=== PATIENT | female | born 1940 | race Caucasian/White ===

== ENCOUNTER 2019-12-29 10:44 | Emergency (ER) | payer OTHER ==
[2019-12-29] MEDS ORDERED: FENTANYL CITR 100 MCG/2 ML ONE (11:52)
--- NOTE | 2019-12-29 12:57 | RAD REPORT ---
EXAM DESCRIPTION: RAD - Ankle Right 3 View - 12/29/2019 12:31 pm CLINICAL HISTORY: Pain;Deformity COMPARISON: No comparisons FINDINGS: Oblique fracture is present through the distal fibula at the tibiotalar joint line. 1 mill imeter of lateral displacement. No significant angulation deformity. There is transverse fracture of the medial malleolus with 2 mm lateral displacement. Dome of the talus shows 1-2 mm lateral displacem ent relative to the tibial plafond. Moderately large plantar and Achilles spurs project from the calcaneus. No measurable joint effusion. Significant anterior and lateral soft tissue swelling. IMPRESSION: Bimalleolar right ankle fracture as detailed.
--- NOTE | 2019-12-29 12:59 | RAD REPORT ---
EXAM DESCRIPTION: RAD - Tib Fib Right - 12/29/2019 12:31 pm CLINICAL HISTORY: PAIN, slip and fall ankle and leg pain COMPARISON: No comparisons FINDINGS: Distal fibula and medial malleolus fractures are detailed in the ankle report. Remainder t he right tibia and fibula show no fracture for acute finding. Partially imaged knee joint shows no nassar spicious finding. No foreign body. Soft tissue swelling at the ankle. IMPRESSION: Right distal fibula and medial malleolus fractures are present, detailed on the ankle re port. Remainder of the examination is unremarkable.
--- NOTE | 2019-12-29 13:57 | ER ---
Nurse's Notes [facility] Name: Razia Hernandez Age: 79 yrs Sex: Female : 1940 Arrival Date: 12/29/2019 Time: 10:46 Bed 16 Private MD: Ashwin Michele C Diagnosis: Bimalleolar fracture of lower leg Presentation: 12/28 11:10 Chief complaint: Patient states: slipped on some water, fell and rolled her right iw ankle, felt bone move inside ankle when she tried to get up, occurred at 0930 today. Coronavirus screen: Proceed with normal triage. Patient denies a cough. Patient denies shortness of breath or difficulty breathing. Patient denies measured and/or subjective temperature greater than 100.4F prior to today's visit. Patient denies travel on a cruise ship or to a country the [facility] currently lists as an affected area. Patient denies contact with known and/or suspected case of COVID-19. Ebola Screen: Patient negative for fever greater than or equal to 101.5 degrees Fahrenheit, and additional compatible Ebola Virus Disease symptoms Patient denies exposure to infectious person. Patient denies travel to an Ebola-affected area in the 21 days before illness onset. No symptoms or risks identified at this time. Initial Sepsis Screen: Does the patient meet any 2 criteria? No. Patient's initial sepsis screen is negative. Does the patient have a suspected source of infection? No. Patient's initial sepsis screen is negative. Risk Assessment: Do you want to hurt yourself or someone else? Patient reports no desire to harm self or others. Onset of symptoms was December 29, 2019. 11:10 Method Of Arrival: Wheelchair iw 11:10 Acuity: JUSTYNA 4 iw Historical: - Allergies: 11:13 Codeine; iw 11:13 Sulfa (Sulfonamide Antibiotics); iw - Home Meds: 11:13 Metformin Oral [Active]; multivitamin oral oral [Active]; Norvasc 10 mg Oral tab 1 tab iw once daily [Active]; Benicar 40 mg oral tab 1 tab once daily [Active]; potassium chloride 10 mEq Oral TbER 1 tab once daily [Active]; metoprolol tartrate 25 mg Oral tab 1 tab 2 times per day [Active]; fenofibrate oral oral [Active]; Fosamax Oral [Active]; 11:14 aspirin 81 mg Oral TbEC 1 tab once daily [Active]; iw - PMHx: 11:13 Diabetes - NIDDM; Hypertension; Hyperlipidemia; iw - Immunization history:: Adult Immunizations. - Social history:: Smoking status: Patient/guardian denies using tobacco, the patient reports quitting approximately 50 years ago. Screenin:46 Abuse screen: Denies threats or abuse. Nutritional screening: No deficits noted. Tuberculosis screening: No symptoms or risk factors identified. Fall Risk None identified. Assessment: 11:25 General: Appears in no apparent distress. Pain: Complains of pain in right lateral ah malleolus Pain does not radiate. Pain currently is 7 out of 10 on a pain scale. Quality of pain is described as throbbing. Neuro: Level of Consciousness is awake, alert, Oriented to person, place, time, situation. Cardiovascular: Heart tones S1 S2 present. Respiratory: Airway is patent Respiratory effort is even, unlabored, Respiratory pattern is regular, symmetrical. GI: No signs and/or symptoms were reported involving the gastrointestinal system. : No signs and/or symptoms were reported regarding the genitourinary system. EENT: No signs and/or symptoms were reported regarding the EENT system. Derm: No signs and/or symptoms reported regarding the dermatologic system. Musculoskeletal: Circulation, motion, and sensation intact. Capillary refill < 3 seconds, Range of motion: intact in right ankle Swelling present in right ankle Tenderness present in right medial malleolus. 12:50 Reassessment: Assisted Pt to bathroom via WC, she states that her pain is better at this time. Vital Signs: 11:10 BP 140 / 74; Pulse 62; Resp 16; Temp 98.4; Pulse Ox 96% on R/A; Weight 68.04 kg; Height iw 5 ft. 3 in. (160.02 cm); Pain 7/10; 11:10 Body Mass Index 26.57 (68.04 kg, 160.02 cm) ED Course: 10:46 Patient arrived in ED. ag5 10:46 Ashwin Michele MD is Private Physician. ag5 10:53 Urban Wei MD is Attending Physician. kdr 11:11 Triage completed. iw 11:13 Arm band placed on. iw 11:42 Re Taylor, RN is Primary Nurse. 12:31 Ankle Right 3 View XRAY In Process Unspecified. EDMS 12:31 Tib Fib Right XRAY In Process Unspecified. EDMS 12:49 Patient has correct armband on for positive identification. Bed in low position. Call light in reach. Side rails up X 1. 13:37 Orthoglass splint: Posterior long leg splint applied on right leg. stirrup splint dh3 applied on right leg. capillary refill < [address] Wei. 13:53 Ashwin Michele MD is Referral Physician. kdr 13:53 Mitch Gomes MD is Referral Physician. kdr 14:15 No provider procedures requiring assistance completed. Patient did not have IV access during this emergency room visit. Administered Medications: 11:50 Drug: fentaNYL (PF) 50 mcg Route: IM; Site: right ventrogluteal; 12:46 Follow up: Response: No adverse reaction; RASS: Alert and Calm (0) Outcome: 13:57 Discharge ordered by . kdr 14:14 Discharged to home ambulatory. 14:14 Condition: good 14:14 Discharge instructions given to patient, Instructed on discharge instructions, follow up and referral plans. medication usage, Demonstrated understanding of instructions, follow-up care, medications, crutch walking, splint care, Prescriptions given X 1. 14:15 Patient left the ED. Signatures: Dispatcher [employer] Urban Loza MD MD [facility] Sarah Ferrer RN RN Bisi Canales 3 Alley Singer 5 Re Taylor RN RN
--- NOTE | 2019-12-29 13:57 | EDPHYS ---
Physician Documentation [facility] Name: Razia Hernandez Age: 79 yrs Sex: Female : 1940 Arrival Date: 12/29/2019 Time: 10:46 Bed 16 Private MD: Ashwin Michele C ED Physician Urban Wei HPI: 12/28 11:30 This 79 yrs old Female presents to ER via Wheelchair with complaints of Ankle kdr Injury. 11:30 The patient presents with decreased range of motion, a deformity, an injury, pain, that kdr is acute, swelling, tenderness. The complaints affect the right ankle. Onset: The symptoms/episode began/occurred suddenly, just prior to arrival. Context: The problem was sustained at home, resulted from the patient tripping, Slipped on wet floor, The mechanism of injury is unknown. Associated signs and symptoms: The patient has no apparent associated signs or symptoms. Modifying factors: The symptoms are alleviated by nothing, the symptoms are aggravated by weight bearing, movement. Severity of symptoms: At their worst the symptoms were moderate, severe, incapacitating, in the emergency department the symptoms are unchanged. The patient has not experienced similar symptoms in the past. The patient has not recently seen a physician. Historical: - Allergies: 11:13 Codeine; iw 11:13 Sulfa (Sulfonamide Antibiotics); iw - Home Meds: 11:13 Metformin Oral [Active]; multivitamin oral oral [Active]; Norvasc 10 mg Oral tab 1 tab iw once daily [Active]; Benicar 40 mg oral tab 1 tab once daily [Active]; potassium chloride 10 mEq Oral TbER 1 tab once daily [Active]; metoprolol tartrate 25 mg Oral tab 1 tab 2 times per day [Active]; fenofibrate oral oral [Active]; Fosamax Oral [Active]; 11:14 aspirin 81 mg Oral TbEC 1 tab once daily [Active]; iw - PMHx: 11:13 Diabetes - NIDDM; Hypertension; Hyperlipidemia; iw - Immunization history:: Adult Immunizations. - Social history:: Smoking status: Patient/guardian denies using tobacco, the patient reports quitting approximately 50 years ago. ROS: 11:30 Constitutional: Negative for fever, chills, and weight loss, Eyes: Negative for injury, kdr pain, redness, and discharge, ENT: Negative for injury, pain, and discharge, Neck: Negative for injury, pain, and swelling, Cardiovascular: Negative for chest pain, palpitations, and edema, Respiratory: Negative for shortness of breath, cough, wheezing, and pleuritic chest pain, Abdomen/GI: Negative for abdominal pain, nausea, vomiting, diarrhea, and constipation, Back: Negative for injury and pain, : Negative for injury, bleeding, discharge, and swelling, Skin: Negative for injury, rash, and discoloration, Neuro: Negative for headache, weakness, numbness, tingling, and seizure activity. Psych: Negative for depression, anxiety, suicide ideation, homicidal ideation, and hallucinations, Allergy/Immunology: Negative for hives, rash, and allergies, Endocrine: Negative for neck swelling, polydipsia, polyuria, polyphagia, and marked weight changes, Hematologic/Lymphatic: Negative for swollen nodes, abnormal bleeding, and unusual bruising. 11:30 MS/extremity: Positive for injury or acute deformity, decreased range of motion, pain, swelling, tenderness, of the right ankle. Exam: 11:30 Constitutional: This is a well developed, well nourished patient who is awake, alert, kdr and in no acute distress. 11:30 Musculoskeletal/extremity: ROM: limited active range of motion, limited passive range of motion, in the right ankle and lateral aspect of right foot, Circulation is intact in all extremities. Sensation intact. Vital Signs: 11:10 BP 140 / 74; Pulse 62; Resp 16; Temp 98.4; Pulse Ox 96% on R/A; Weight 68.04 kg; Height iw 5 ft. 3 in. (160.02 cm); Pain 7/10; 11:10 Body Mass Index 26.57 (68.04 kg, 160.02 cm) iw MDM: 11:30 Data reviewed: vital signs, nurses notes, radiologic studies. Counseling: I had a kdr detailed discussion with the patient and/or guardian regarding: the historical points, exam findings, and any diagnostic results supporting the discharge/admit diagnosis, the need for outpatient follow up. 13:57 Patient medically screened. kdr 12/28 11:29 Order name: Ankle Right 3 View XRAY kdr 12/28 11:29 Order name: Tib Fib Right XRAY kdr 12/28 11:29 Order name: Splint - Ankle: Posterior: With stirrup to just above knee; Complete Time: kdr 13:39 12/28 11:30 Order name: Crutches; Complete Time: 11:52 kdr Administered Medications: 11:50 Drug: fentaNYL (PF) 50 mcg Route: IM; Site: right ventrogluteal; 12:46 Follow up: Response: No adverse reaction; RASS: Alert and Calm (0) Disposition: 12/29/19 13:57 Discharged to Home. Impression: Bimalleolar fracture of lower leg. - Condition is Stable. - Discharge Instructions: Ankle Fracture, [id number]. - Prescriptions for Tramadol 50 mg Oral Tablet - take 1 tablet by ORAL route every 8 hours as needed; 12 tablet. - Medication Reconciliation Form, Thank You Letter form. - Follow up: Ashwin Michele MD; When: 2 - 3 days; Reason: Further diagnostic work-up, Recheck today's complaints, Continuance of care, Re-evaluation by your physician. Follow up: Mitch Gomes MD; When: 2 - 3 days; Reason: Further diagnostic work-up, Recheck today's complaints, Continuance of care, Re-evaluation by your physician. - Problem is new. - Symptoms have improved. Signatures: Dispatcher [employer] EDMS Urban Wei MD MD kdr Sarah Ferrer, LOVE RN Re Taylor RN RN Corrections: (The following items were deleted from the chart) 14:15 13:57 12/29/2019 13:57 Discharged to Home. Impression: Bimalleolar fracture of lower ah leg. Condition is Stable. Forms are Medication Reconciliation Form, Thank You Letter, Antibiotic Education, Prescription Opioid Use. Follow up: Ashwin Michele; When: 2 - 3 days; Reason: Further diagnostic work-up, Recheck today's complaints, Continuance of care, Re-evaluation by your physician. Follow up: Dr. Mitch Gomes; When: 2 - 3 days; Reason: Further diagnostic work-up, Recheck today's complaints, Continuance of care, Re-evaluation by your physician. Problem is new. Symptoms have improved. kdr
[2019-12-30 02:36] VITALS: BP 140/74; TEMP 98.4; O2SAT 96
== END 2019-12-29 14:15 | disposition home or self-care (01) ==
LOC: ER 10:44
PROC: 2W3QX1Z Immobilization of Right Lower Leg using Splint (ICD-10-PCS; principal; 2019-12-29)
DX: S82.841A Displaced bimalleolar fracture of right lower leg, initial encounter for closed fracture (principal); W01.0XXA Fall on same level from slipping, tripping and stumbling without subsequent striking against object, initial encounter; Y93.9 Activity, unspecified; Y92.009 Unspecified place in unspecified non-institutional (private) residence as the place of occurrence of the external cause; Z79.82 Long term (current) use of aspirin; I10 Essential (primary) hypertension; E11.9 Type 2 diabetes mellitus without complications; E78.5 Hyperlipidemia, unspecified
CPT/HCPCS: 73590; 73610; 96372; 99284; 29515; J3010

== ENCOUNTER 2021-08-03 04:19 | Inpatient (IN) | payer OTHER ==
--- OUTSIDE RECORDS SUMMARY | 2021-08-03 04:22 | XMS REPORT | Continuity of Care Document ---
:1940 Author Organization [facility] t Address [address] [place] [address] Care Team Providers Name Role Phone Tana PONCE Primary Care Physician Unavailable Clemencia WARD Attending Clinician Unavailable Clemencia Bethea Attending Clinician Payers Payer Name Policy Type Policy Number Effective Date Expiration Date Clemencia mora MEDICARE PART A [id number] 2006 \T\ B 00:00:00 Problems This patient has no known problems. Allergies, Adverse Reactions, Alerts Allergy Allergy Status Severity Reaction(s) Onset Inactive Treating Comm ents Source Name Type Date Date Clinician CODEINE DRUG Active N/V 2020-0 Univers INGREDI 5-11 ity of 00:00: [place] 00 [facility] Branch SULFA DRUG Active Swelling 2020-0 Univers DYNE 5-11 ity of 00:00: [place] 00 [facility] TRAMADOL DRUG Active N/V 2020-0 Univers INGREDI 5-11 ity of 00:00: [place] 00 [facility] Codeine Propensi Active Rash 2020-0 Univers ty to 5-11 ity of adverse 00:00: [place] reaction 00 Medical s Branch Sulfa Propensi Active Swelling 2020-0 Univer s Dyne ty to 5-11 ity of adverse 00:00: [place] reaction 00 Medical s Branch Tramadol Propensi Active Nausea 2020-0 Univer s ty to and/or 5-11 ity of adverse Vomiting 00:00: [place] reaction 00 Medical Branch NO KNOWN Drug Active Univers ALLERGIE Class ity of S [facility] Social History Social Habit Start Date Stop Date Quantity Comments Source Sex Assigned At Uni versity of [facility] Exposure to SARS-CoV-2 Not sure Un [facility] [place] (event) Medical [place] Smoking Status Start Date Stop Date Source Former smoker 2020-02-10 00:00:00 2020-02-10 00:00:00 Universi [facility] Medical Branch Medications Ordered Filled Start Stop Current Ordering Indication Dosage Frequency Signature Comments Components Source Medication Medication Date Date Medication? Clinician (SIG) Name Name ondansetron 2020-0 Yes [id number] 8mg Take 1 Univers (ZOFRAN) 8 5-18 tablet by ity of mg tablet 00:00: mouth [place] 00 every 12 Medical (twelve) Branch hours. ondansetron 2020-0 Yes [id number] 8mg Take 1 Univers (ZOFRAN) 8 5-18 tablet by ity of mg tablet 00:00: mouth [place] 00 every 12 Medical (twelve) Branch hours. ondansetron 2020-0 Yes [id number] 8mg Take 1 Univers (ZOFRAN) 8 5-18 tablet by ity of mg tablet 00:00: mouth [place] 00 every 12 Medical (twelve) Branch hours. ondansetron 2020-0 Yes [id number] 8mg Take 1 Univers (ZOFRAN) 8 5-18 tablet by ity of mg tablet 00:00: mouth [place] 00 every 12 Medical (twelve) Branch hours. ondansetron 2020-0 Yes [id number] 8mg Take 1 Univers (ZOFRAN) 8 5-18 tablet by ity of mg tablet 00:00: mouth [place] 00 every 12 Medical (twelve) Branch hours. ondansetron 2020-0 Yes [id number] 8mg Take 1 Univers (ZOFRAN) 8 5-18 tablet by ity of mg tablet 00:00: mouth [place] 00 every 12 Medical (twelve) Branch hours. ASPIRIN LOW 2020-0 Yes Take by Un main DOSE ORAL 5-11 mouth. ity of 19:25: [address] ASPIRIN LOW 2020-0 Yes Take by Un main DOSE ORAL 5-11 mouth. ity of 19:25: [address] ASPIRIN LOW 2020-0 Yes Take by Un main DOSE ORAL 5-11 mouth. ity of 19:25: [address] ASPIRIN LOW 2020-0 Yes Take by Un main DOSE ORAL 5-11 mouth. ity of 19:25: [address] ASPIRIN LOW 2020-0 Yes Take by Un main DOSE ORAL 5-11 mouth. ity of 19:25: [address] ASPIRIN LOW 2020-0 Yes Take by Un main DOSE ORAL 5-11 mouth. ity of 19:25: [place] [id number] Medical Branch ASPIRIN LOW 2020-0 Yes Take by Un main DOSE ORAL 5-11 mouth. ity of 19:25: [place] [id number] Medical Branch ASPIRIN LOW 2020-0 Yes Take by Un main DOSE ORAL 5-11 mouth. ity of 19:25: [place] [id number] Medical Branch metoprolol 2020-0 Yes 25mg Take 25 mg U nivers succinate 5-11 by mouth ity of XL 25 mg 24 19:[place]. [place] 11 [place] [facility] amLODIPine 2020-0 Yes 10mg Take 10 mg U nivers (NORVASC) 5-11 by mouth ity of 10 mg 19:25: daily. [place] tablet 11 Medical Branch olmesartan- 2019-0 Yes 1{tbl} Take 1 Un main hydrochloro 5-11 tablet by ity of thiazide 19:25: mouth [place] (BENICAR 11 daily. Medical HCT) Branch 40-12.5 mg per tablet Potassium 2020-0 Yes Take by [facility] ers Bicarb-Citr 5-11 mouth. ity of ic Acid 10 19:25: [place] mEq TbEF 11 Medical Branch fenofibrate 2020-0 Yes 145mg Take 145 U nivers 145 mg 5-11 mg by ity of tablet 19:25: mouth [place] 11 daily. Medical Branch metoprolol 2020-0 Yes 25mg Take 25 mg U nivers succinate 5-11 by mouth ity of XL 25 mg 24 19:25: [place]. [place] tablet 11 [place] [facility] amLODIPine 2020-0 Yes 10mg Take 10 mg U nivers (NORVASC) 5-11 by mouth ity of 10 mg 19:25: daily. [place] tablet 11 Medical Branch olmesartan- 2020-0 Yes 1{tbl} Take 1 Un main hydrochloro 5-11 tablet by ity of thiazide 19:25: mouth [place] (BENICAR 11 daily. Medical HCT) Branch 40-12.5 mg per tablet Potassium 2020-0 Yes Take by [facility] ers Bicarb-Citr 5-11 mouth. ity of ic Acid 10 19:25: [place] mEq TbEF 11 Medical Branch fenofibrate 2020-0 Yes 145mg Take 145 U nivers 145 mg 5-11 mg by ity of tablet 19:25: mouth [place] 11 daily. Medical Branch metoprolol 2020-0 Yes 25mg Take 25 mg U nivers succinate 5-11 by mouth ity of XL 25 mg 24 19:25: [place]. [place] tablet 11 [facility] amLODIPine 2020-0 Yes 10mg Take 10 mg U nivers (NORVASC) 5-11 by mouth ity of 10 mg 19:25: daily. [place] tablet 11 Medical Branch olmesartan- 2020-0 Yes 1{tbl} Take 1 Un main hydrochloro 5-11 tablet by ity of thiazide 19:25: mouth [place] (BENICAR 11 daily. Medical HCT) Branch 40-12.5 mg per tablet Potassium 2020-0 Yes Take by [facility] ers Bicarb-Citr 5-11 mouth. ity of ic Acid 10 19:25: [place] mEq TbEF 11 Medical Branch olmesartan- 2020-0 Yes 1{tbl} Take 1 Un main hydrochloro 5-11 tablet by ity of thiazide 19:25: mouth [place] (BENICAR 11 daily. Medical HCT) Branch 40-12.5 mg per tablet fenofibrate 2020-0 Yes 145mg Take 145 U nivers 145 mg 5-11 mg by ity of tablet 19:25: mouth [place] 11 daily. Medical Branch metoprolol 2020-0 Yes 25mg Take 25 mg U nivers succinate 5-11 by mouth ity of XL 25 mg 24 19:25: [place]. [place] 11 [place] [facility] amLODIPine 2019-0 Yes 10mg Take 10 mg U nivers (NORVASC) 5-11 by mouth ity of 10 mg 19:25: daily. [place] tablet 11 Medical Branch Potassium 2020-0 Yes Take by [facility] ers Bicarb-Citr 5-11 mouth. ity of ic Acid 10 19:25: [place] mEq TbEF 11 Medical Branch fenofibrate 2020-0 Yes 145mg Take 145 U nivers 145 mg 5-11 mg by ity of tablet 19:25: mouth [place] 11 daily. Medical Branch metoprolol 2020-0 Yes 25mg Take 25 mg U nivers succinate 5-11 by mouth ity of XL 25 mg 24 19:25: [place]. [place] tablet 11 [facility] amLODIPine 2020-0 Yes 10mg Take 10 mg U nivers (NORVASC) 5-11 by mouth ity of 10 mg 19:25: daily. [place] tablet 11 Medical Branch olmesartan- 2020-0 Yes 1{tbl} Take 1 Un main hydrochloro 5-11 tablet by ity of thiazide 19:25: mouth [place] (BENICAR 11 daily. Medical HCT) Branch 40-12.5 mg per tablet Potassium 2020-0 Yes Take by [facility] ers Bicarb-Citr 5-11 mouth. ity of ic Acid 10 19:25: [place] mEq TbEF 11 Medical Branch fenofibrate 2020-0 Yes 145mg Take 145 U nivers 145 mg 5-11 mg by ity of tablet 19:25: mouth [place] 11 daily. Medical Branch metoprolol 2020-0 Yes 25mg Take 25 mg U nivers succinate 5-11 by mouth ity of XL 25 mg 24 19:25: [place]. [place] tablet 11 [facility] amLODIPine 2020-0 Yes 10mg Take 10 mg U nivers (NORVASC) 5-11 by mouth ity of 10 mg 19:25: daily. [place] tablet 11 Medical Branch olmesartan- 2020-0 Yes 1{tbl} Take 1 Un main hydrochloro 5-11 tablet by ity of thiazide 19:25: mouth [place] (BENICAR 11 daily. Medical HCT) Branch 40-12.5 mg per tablet Potassium 2020-0 Yes Take by [facility] ers Bicarb-Citr 5-11 mouth. ity of ic Acid 10 19:25: [place] mEq TbEF 11 Medical Branch fenofibrate 2020-0 Yes 145mg Take 145 U nivers 145 mg 5-11 mg by ity of tablet 19:25: mouth [place] 11 daily. Medical Branch metoprolol 2020-0 Yes 25mg Take 25 mg U nivers succinate 5-11 by mouth ity of XL 25 mg 24 19:25: [place]. [place] tablet 11 [place] [facility] amLODIPine 2020-0 Yes 10mg Take 10 mg U nivers (NORVASC) 5-11 by mouth ity of 10 mg 19:25: daily. [place] tablet 11 Medical Branch olmesartan- 2020-0 Yes 1{tbl} Take 1 Un main hydrochloro 5-11 tablet by ity of thiazide 19:25: mouth [place] (BENICAR 11 daily. Medical HCT) Branch 40-12.5 mg per tablet Potassium 2020-0 Yes Take by [facility] ers Bicarb-Citr 5-11 mouth. ity of ic Acid 10 19:25: [place] mEq TbEF 11 Medical Branch fenofibrate 2020-0 Yes 145mg Take 145 U nivers 145 mg 5-11 mg by ity of tablet 19:25: mouth [place] 11 daily. Medical Branch metoprolol 2019-0 Yes 25mg Take 25 mg U nivers succinate 5-11 by mouth ity of XL 25 mg 24 19:25: [place]. [place] tablet 11 [facility] amLODIPine 2019-0 Yes 10mg Take 10 mg U nivers (NORVASC) 5-11 by mouth ity of 10 mg 19:25: daily. [place] tablet 11 Medical Branch olmesartan- 2019-0 Yes 1{tbl} Take 1 Un main hydrochloro 5-11 tablet by ity of thiazide 19:25: mouth [place] (BENICAR 11 daily. Medical HCT) Branch 40-12.5 mg per tablet Potassium 2019-0 Yes Take by Univ ers Bicarb-Citr 5-11 mouth. ity of ic Acid 10 19:25: [place] mEq TbEF 11 Medical Branch fenofibrate 2019- Yes 145mg Take 145 U nivers 145 mg 5-11 mg by ity of tablet 19:25: mouth [place] 11 daily. Medical Branch Vital Signs Vital Name Observation Time Observation Value Comments Source Systolic blood 2020-02-10 16:05:00 116 mm[Hg[facility] [place] Diastolic blood 2020-02-10 16:05:00 63 mm[Hg] Un[facility] Heart rate 2020-02-10 16:05:00 73 /min [facility] Body height 2020-02-10 16:05:00 161.3 cm [facility] Body weight 2020-02-10 16:05:00 69.854 kg [facility] BMI 2020-02-10 16:05:00 26.85 kg/m2 [facility] Body height 2020-01-09 18:53:00 161.3 cm [facility] Body weight 2020-01-09 18:53:00 68.947 kg [facility] BMI 2020-01-09 18:53:00 26.50 kg/m2 [facility] Systolic blood 2020-01-02 19:21:00 139 mm[Hg] Univer [facility] Branch Diastolic blood 2020-01-02 19:21:00 78 mm[Hg] [facility] Heart rate 2020-01-02 19:21:00 71 /min [facility] Body height 2020-01-02 19:21:00 161.3 cm [facility] Body weight 2020-01-02 19:21:00 68.947 kg [facility] BMI 2020-01-02 19:21:00 26.50 kg/m2 [facility] Procedures Procedure Date / Time Performed Performing Clinician Reza tucker XR ANKLE <3 VW RIGHT 2020-02-10 16:03:58 Chris Ward ity [facility] [place] XR ANKLE <3 VW RIGHT 2020-01-09 18:56:03 Chris Ward [facility] Encounters Start End Encounter Admission Attending Care Care Encounter Source Date/Time Date/Time Type Type Clinicians Facility Department ID 2020-02-10 2020-02-10 Outpatient Tisha WARD [facility] [id number] Univers 11:03:57 23:59:00 CHRIS [facility] 2020-02-10 2020-02-10 [facility] [id number] Univers 11:03:00 23:59:00 Encounter [facility] [id number] ity of Surgical [id number] [place] as Specialti [id number] Sd dical es 809 [facility] 2020-02-10 2020-02-10 Office [facility] [id number] Univers 11:01:13 11:16:13 Visit [facility] [id number] it y of Surgical [id number] Clifford as Specialti [id number] Sd dical es 198 [facility] 2020-02-10 2020-02-10 Outpatient Tisha WARD [facility] [id number] Univers 11:00:00 11:00:00 CHRIS [id number] [facility] 2020-01-09 2020-01-09 [id number] Univers 13:56:03 23:59:00 CHRIS [facility] 2020-01-09 2020-01-09 [facility] [id number] Univers 13:56:00 23:59:00 Encounter Chris [facility] [id number] ity of Surgical [id number] Clifford as Specialti [id number] Sd dical es 809 [facility] 2020-01-09 2020-01-09 Office [facility] [id number] Univers 13:43:34 13:58:34 Visit Chris [facility] [id number] it y of Surgical [id number] Clifford as Specialti [id number] Sd dical es 198 [facility] 2020-01-09 2020-01-09 Outpatient R [facility] [id number] Univers 13:45:00 13:45:00 CHRIS [id number] [facility] 2020-01-02 2020-01-02 Office [facility] [id number] Univers 14:14:23 14:29:23 Visit [facility] [id number] it y of Surgical [id number] Clifford as Specialti [id number] Sd dical es 198 [facility] 2020-01-02 2020-01-02 [facility] [id number] Univers 14:15:00 14:15:00 [facility] Results Test Description Test Time Test Comments Results Result Sour e Comments XR ANKLE <3 VW 2020-02-10 She has a University of RIGHT 16:21:19 fracture of the [place] Med ical medial and Branch lateral malleolus that show callus formation now her ankle mortise is balanced XR ANKLE <3 VW 2020-01-09 On the oblique Univer sity of RIGHT 19:06:42 view she has [place] Medica l normal alignment Branch there is a bimalleolar fracture of her right ankle. ?
[2021-08-03] MEDS ORDERED: NA CHLORIDE 0.9% 1,000 ML ONE (04:55)
[2021-08-03 05:01] LABS: Absolute Lymphocytes (CBC) 1.4 K/uL (0.7-4.9); Basophils % 0.7 % (0-1.3); Hematocrit 39.1 % (36.0-45.0); Lymphocytes % 19.8 % (15.3-44.8); MPV 8.1 fL (7.6-11.3); RBC Red Blood Cell Count 4.32 M/uL (3.86-4.86)
[2021-08-03 05:08] LABS: Protime INR 0.84
[2021-08-03] MEDS ORDERED: ASPIRIN EC 81 MG TAB PO ONE ×2 (05:20→07:47)
[2021-08-03] MEDS ORDERED: FENTANYL CITR 100 MCG/2 ML ONE (05:20)
[2021-08-03] MEDS ORDERED: METOPROLOL TAR 50 MG TAB ONE (05:20)
[2021-08-03 05:21] LABS: ALT/SGPT 34 U/L (12-78); AST/SGOT 21 U/L (15-37); Alkaline Phosphatase 30 U/L (45-117); BUN Blood Urea Nitrogen 33 mg/dL (7-18); Bicarbonate 27 mmol/L (21-32); Bilirubin Direct 0.1 mg/dL (0-0.2); Bilirubin Total 0.3 mg/dL (0.2-1.0); Glucose Level 215 mg/dL (74-106); Lipase 317 U/L (73-393); Magnesium 1.9 mg/dL (1.8-2.4); NT PRO-BNP 514 pg/mL (<450); Potassium 3.4 mmol/L (3.5-5.1); Protein, Total 7.7 g/dL (6.4-8.2); Sodium Level 142 mmol/L (136-145); Troponin (Emerg Dept Use Only) < 0.02 ng/mL (0.0-0.045)
[2021-08-03] MEDS ORDERED: ONDANSETRON 4 MG/2 ML VIAL ONE (05:21)
[2021-08-03] MEDS ORDERED: FAMOTIDINE 20 MG TAB ONE (05:21)
[2021-08-03] MEDS ORDERED: CLOPIDOGREL 75 MG TABLET ONE ×2 (05:21→07:47)
--- NOTE | 2021-08-03 05:22 | EDPHYS ---
Physician Documentation [facility] Name: Razia Hernandez Age: 81 yrs Sex: Female : 1940 Arrival Date: 08/03/2021 Time: 04:22 Bed 17 Private MD: ED Physician Soren Muller HPI: 08/03 05:12 This 81 yrs old Female presents to ER via Ambulatory with complaints of Chest shen Pain > 30 y/o. 05:12 The patient or guardian reports chest pain that is located primarily in the substernal shen area, anterior chest wall, left. Onset: just prior to arrival. The pain radiates to the left shoulder. Associated signs and symptoms: Pertinent positives: shortness of breath. The chest pain is described as a heaviness, causing indigestion. Duration: The patient or guardian reports a single episode, that is still ongoing, but improving. Modifying factors: The symptoms are alleviated by nothing. the symptoms are aggravated by nothing. Severity of pain: At its worst the pain was moderate in the emergency department the pain has improved mildly. The patient has experienced a previous episode, last month. Historical: - Allergies: 04:42 Codeine; sm5 04:42 Sulfa (Sulfonamide Antibiotics); sm5 04:42 Tramadol HCl; sm5 - Home Meds: 04:42 aspirin 81 mg Oral TbEC 1 tab once daily [Active]; Benicar 40 mg Oral tab 1 tab once sm5 daily [Active]; fenofibrate Oral [Active]; Fosamax Oral [Active]; Metformin Oral [Active]; metoprolol tartrate 25 mg Oral tab 1 tab 2 times per day [Active]; multivitamin Oral [Active]; Norvasc 10 mg Oral tab 1 tab once daily [Active]; - PMHx: 04:42 Diabetes - NIDDM; Hyperlipidemia; Hypertension; sm5 - Immunization history:: Client reports receiving the 2nd dose of the Covid vaccine. - Social history:: Smoking status: Patient/guardian denies using tobacco, the patient reports quitting approximately 60 years ago. ROS: 05:14 Constitutional: Negative for fever, chills, and weight loss, Eyes: Negative for injury, shen pain, redness, and discharge, ENT: Negative for injury, pain, and discharge, Neck: Negative for injury, pain, and swelling, Respiratory: Negative for shortness of breath, cough, wheezing, and pleuritic chest pain, Abdomen/GI: Negative for abdominal pain, nausea, vomiting, diarrhea, and constipation, Back: Negative for injury and pain, : Negative for injury, bleeding, discharge, and swelling, MS/Extremity: Negative for injury and deformity, Skin: Negative for injury, rash, and discoloration, Neuro: Negative for headache, weakness, numbness, tingling, and seizure, Psych: Negative for depression, anxiety, suicide ideation, homicidal ideation, and hallucinations, Allergy/Immunology: Negative for hives, rash, and allergies, Endocrine: Negative for neck swelling, polydipsia, polyuria, polyphagia, and marked weight changes, Hematologic/Lymphatic: Negative for swollen nodes, abnormal bleeding, and unusual bruising. 05:14 Cardiovascular: Positive for chest pain, of the chest. Exam: 05:14 Constitutional: This is a well developed, well nourished patient who is awake, alert, shen and in no acute distress. Head/Face: Normocephalic, atraumatic. Eyes: Pupils equal round and reactive to light, extra-ocular motions intact. Lids and lashes normal. Conjunctiva and sclera are non-icteric and not injected. Cornea within normal limits. Periorbital areas with no swelling, redness, or edema. ENT: Nares patent. No nasal discharge, no septal abnormalities noted. Tympanic membranes are normal and external auditory canals are clear. Oropharynx with no redness, swelling, or masses, exudates, or evidence of obstruction, uvula midline. Mucous membranes moist. Neck: Trachea midline, no thyromegaly or masses palpated, and no cervical lymphadenopathy. Supple, full range of motion without nuchal rigidity, or vertebral point tenderness. No Meningismus. Chest/axilla: Normal chest wall appearance and motion. Nontender with no deformity. No lesions are appreciated. Cardiovascular: Regular rate and rhythm with a normal S1 and S2. No gallops, murmurs, or rubs. Normal PMI, no JVD. No pulse deficits. Respiratory: Lungs have equal breath sounds bilaterally, clear to auscultation and percussion. No rales, rhonchi or wheezes noted. No increased work of breathing, no retractions or nasal flaring. Back: No spinal tenderness. No costovertebral tenderness. Full range of motion. Female : Normal external genitalia. Skin: Warm, dry with normal turgor. Normal color with no rashes, no lesions, and no evidence of cellulitis. MS/ Extremity: Pulses equal, no cyanosis. Neurovascular intact. Full, normal range of motion. Neuro: Awake and alert, GCS 15, oriented to person, place, time, and situation. Cranial nerves II-XII grossly intact. Motor strength 5/5 in all extremities. Sensory grossly intact. Cerebellar exam normal. Normal gait. Psych: Awake, alert, with orientation to person, place and time. Behavior, mood, and affect are within normal limits. 05:14 ECG was reviewed by the Attending Physician. 05:14 Musculoskeletal/extremity: ROM: full active range of motion, full passive range of motion, Circulation is intact in all extremities. Sensation intact. Compartment Syndrome exam of affected extremity: is normal. DVT Exam: No signs of deep vein thrombosis. no pain, no swelling, no tenderness, negative Homans' sign noted on exam, no appreciated bluish discoloration, no erythema, no increased warmth. Vital Signs: 04:39 BP 119 / 72; Pulse 94; Resp 18; Pulse Ox 96% on R/A; Weight 71.21 kg; Height 5 ft. 3 sm5 in. (160.02 cm); Pain 7/10; 05:19 BP 123 / 70 LA Supine (auto/reg); sm5 05:19 BP 133 / 75 RA Supine (auto/reg); 5 07:03 BP 114 / 71; Pulse 60; Resp 17; Temp 98.3; Pulse Ox 96% ; Pain 0/10; ll1 04:39 Body Mass Index 27.81 (71.21 kg, 160.02 cm) 5 MDM: 04:34 Patient medically screened. shen 05:17 Differential diagnosis: abnormal EKG, acute myocardial infarction, anxiety, coronary shen artery disease congestive heart failure Cholelithiasis hiatal hernia, pancreatitis, pulmonary embolus, stable angina, unstable angina. HEART Score: History: Slightly Suspicious (0), ECG: Non specific repolarization disturbance / LBTB / PM (1), Age: > or = 65 years (2), Risk Factors: > or = 3 Risk factors for atherosclerotic disease (2), [Hypercholesterolemia] [Hypertension] [DM] [+ Family HX] Troponin: < or = 1 x Normal Limit (0). The patient was given aspirin in the Emergency Department. The patient's deep vein thrombosis risk score was calculated as follows: Total Score: 0. This patient was found to be at low risk for a deep vein thrombosis by using the Well's assessment criteria. The patient's pulmonary embolism risk score was calculated as follows: Total Score: 0-2 points. This patient was found to be at low risk for a pulmonary embolism by using the Well's assessment criteria. JUAN Risk Score: 1 - patient's age is greater or equal to 65 years, 1 - Three or more CAD risk factors, 1- Known CAD, 1 - ASA use in past 7 days, 1 - Recent [<24hrs] Severe Angina, TOTAL SCORE = 5. Data reviewed: vital signs, nurses notes, lab test result(s), EKG, radiologic studies, CT scan, plain films. Data interpreted: phototypesetting equipment monitor: rate is 94 beats/min, rhythm is regular, Pulse oximetry: on room air is 96 %. Test interpretation: by ED physician or midlevel provider: ECG, plain radiologic studies. Counseling: I had a detailed discussion with the patient and/or guardian regarding: the historical points, exam findings, and any diagnostic results supporting the discharge/admit diagnosis, lab results, radiology results, the need for further work-up and treatment in the hospital. 08/03 04:32 Order name: Basic Metabolic Panel [facility] 08/03 04:32 Order name: CBC with Diff [facility] 08/03 04:32 Order name: LFT's [facility] 08/03 04:32 Order name: Magnesium [facility] 08/03 04:32 Order name: NT PRO-BNP [facility] 08/03 04:32 Order name: PT-INR; Complete Time: 05:12 [facility] 08/03 04:32 Order name: Troponin (emerg Dept Use Only) [facility] 08/03 04:32 Order name: XRAY Chest (1 view) [facility] 08/03 04:32 Order name: Lipase [facility] 08/03 04:32 Order name: SARS-COV-2 RT PCR (Document "Date of Onset" if Symptomatic) [facility] 08/03 04:33 Order name: Basic Metabolic Panel [facility] 08/03 04:33 Order name: CBC with Automated Diff; Complete Time: 05:12 [facility] 08/03 04:33 Order name: Liver (Hepatic) Function [facility] 08/03 05:58 Order name: Urine Dipstick-Ancillary [facility] 08/03 04:32 Order name: EKG; Complete Time: 04:33 [facility] 08/03 04:32 Order name: Cardiac monitoring; Complete Time: 04:44 [facility] 08/03 04:32 Order name: EKG - Nurse/Tech; Complete Time: 04:44 [facility] 08/03 04:32 Order name: IV Saline Lock; Complete Time: 04:44 [facility] 08/03 05:12 Order name: CT Aorta for Dissection [facility] 08/03 05:27 Order name: CONS Physician Consult [facility] 08/03 07:24 Order name: CT [facility] 08/03 04:32 Order name: Labs collected and sent; Complete Time: 04:54 [facility] 08/03 04:32 Order name: O2 Per Protocol; Complete Time: 04:44 [facility] 08/03 04:32 Order name: O2 Sat Monitoring; Complete Time: 04:44 [facility] 08/03 04:32 Order name: Urine Dipstick-Ancillary (obtain specimen); Complete Time: 05:57 [facility] 08/03 05:12 Order name: Bilateral blood pressure; Complete Time: 05:19 [facility] EC:14 Rate is 94 beats/min. Rhythm is regular. QRS Harper is Normal. MO interval is normal. QRS shen interval is normal. QT interval is normal. No Q waves. T waves are Normal. T waves are Inverted in leads V4, V5, V6. No ST changes noted. Clinical impression: NSR w/ Non-specific ST/T Changes. Interpreted by me. Reviewed by me. Administered Medications: 04:57 Drug: NS 0.9% 1000 ml Route: IV; Rate: 125 ml/hr; Site: right forearm; sm5 08:55 Follow up: Response: No adverse reaction; IV Status: Completed infusion; IV Intake: ll1 1000ml 05:39 Drug: Pepcid (famotidine) 20 mg Route: IVP; Site: right forearm; sm5 08:54 Follow up: Response: No adverse reaction ll1 05:41 Drug: Zofran (Ondansetron) 4 mg Route: IVP; Site: right forearm; sm5 08:54 Follow up: Response: No adverse reaction ll1 05:42 Drug: Aspirin Chewable Tablet 162 mg Route: PO; sm5 08:55 Follow up: Response: No adverse reaction ll1 05:42 Drug: PlaVIX (clopidogrel) 300 mg Route: PO; sm5 08:54 Follow up: Response: No adverse reaction ll1 05:42 Drug: Lopressor (metoprolol TARTRATE) 50 mg Route: PO; sm5 08:54 Follow up: Response: No adverse reaction ll1 05:43 Drug: Lovenox (enoxaparin) 71.21 mg Route: Sub-Q; Site: abdomen; sm5 08:55 Follow up: Response: No adverse reaction ll1 05:45 Drug: fentaNYL (PF) 50 mcg Route: IVP; Site: right forearm; sm5 08:54 Follow up: Response: No adverse reaction ll1 06:23 Drug: Potassium Effervescent Tablet 25 mEq Route: PO; sm5 08:53 Follow up: Response: No adverse reaction ll1 Disposition Summary: 08/03/21 05:22 Hospitalization Ordered Hospitalization Status: Inpatient Admission shen Provider: Louis Michele cha Location: Telemetry/MedSurg (Inpatient) shen Condition: Stable shen Problem: new shen Symptoms: have improved shen Bed/Room Type: Standard shen Room Assignment: 204(08/03/21 08:18) eb Diagnosis - Chest pain, unspecified shen - Essential (primary) hypertension shen - Type 2 diabetes mellitus with hyperglycemia shen - Unstable angina shen - Hypokalemia shen Forms: - Medication Reconciliation Form shen - SBAR form shen Signatures: Dispatcher [employer] Soren Moreira MD MD cha Botello, Elizabeth eb Mazur, Sarah, RN RN sm5 You Clement RN ll1 Corrections: (The following items were deleted from the chart) 08:18 05:22 shen eb
--- NOTE | 2021-08-03 05:22 | ER ---
Nurse's Notes [facility] Name: Razia Hernandez Age: 81 yrs Sex: Female : 1940 Arrival Date: 08/03/2021 Time: 04:22 Bed 17 Private MD: Diagnosis: Chest pain, unspecified;Essential (primary) hypertension;Type 2 diabetes mellitus with hyperglycemia;Unstable angina;Hypokalemia Presentation: 08/03 04:39 Chief complaint: Patient states: pt states she started having chest pain around 0130. sm5 started in her chest and radiated to her back and L arm. Coronavirus screen: Vaccine status: Patient reports receiving the 2nd dose of the covid vaccine. Ebola Screen: Patient negative for fever greater than or equal to 101.5 degrees Fahrenheit, and additional compatible Ebola Virus Disease symptoms Patient denies exposure to infectious person. Patient denies travel to an Ebola-affected area in the 21 days before illness onset. Initial Sepsis Screen: Does the patient meet any 2 criteria? No. Patient's initial sepsis screen is negative. Does the patient have a suspected source of infection? No. Patient's initial sepsis screen is negative. Risk Assessment: Do you want to hurt yourself or someone else? Patient reports no desire to harm self or others. Onset of symptoms was August 03, 2021 at 01:30. 04:39 Method Of Arrival: Ambulatory [facility] 04:39 Acuity: JUSTYNA 3 sm5 Triage Assessment: 04:40 General: Appears in no apparent distress. Behavior is calm, cooperative. 5 04:41 Pain: Complains of pain in back, chest and left arm. Neuro: Level of Consciousness is sm5 awake, alert, Oriented to person, place, time, situation. Cardiovascular: Reports chest pain, Capillary refill < 3 seconds Patient's skin is warm and dry. Rhythm is sinus rhythm. Respiratory: Airway is patent Trachea midline Respiratory effort is even, unlabored. GI: No deficits noted. : No deficits noted. Historical: - Allergies: 04:42 Codeine; sm5 04:42 Sulfa (Sulfonamide Antibiotics); sm5 04:42 Tramadol HCl; sm5 - Home Meds: 04:42 aspirin 81 mg Oral TbEC 1 tab once daily [Active]; Benicar 40 mg Oral tab 1 tab once sm5 daily [Active]; fenofibrate Oral [Active]; Fosamax Oral [Active]; Metformin Oral [Active]; metoprolol tartrate 25 mg Oral tab 1 tab 2 times per day [Active]; multivitamin Oral [Active]; Norvasc 10 mg Oral tab 1 tab once daily [Active]; - PMHx: 04:42 Diabetes - NIDDM; Hyperlipidemia; Hypertension; sm5 - Immunization history:: Client reports receiving the 2nd dose of the Covid vaccine. - Social history:: Smoking status: Patient/guardian denies using tobacco, the patient reports quitting approximately 60 years ago. Screenin:40 Abuse screen: Denies threats or abuse. Denies injuries from another. Nutritional sm5 screening: No deficits noted. Tuberculosis screening: No symptoms or risk factors identified. Fall Risk No fall in past 12 months (0 pts). No secondary diagnosis (0 pts). IV access (20 points). Ambulatory Aid- None/Bed Rest/Nurse Assist (0 pts). Gait- Normal/Bed Rest/Wheelchair (0 pts) Mental Status- Oriented to own ability (0 pts). Assessment: 04:43 Pain: Complains of pain in back and left arm Pain radiates to chest and back Pain began sm5 3 hours ago. 06:50 Reassessment: No changes from previously documented assessment. Patient and/or family ll1 updated on plan of care and expected duration. Pain level reassessed. Patient is alert, oriented x 3, equal unlabored respirations, skin warm/dry/pink. Report received from RN. Olga . 08:00 Reassessment: No changes from previously documented assessment. Patient and/or family ll1 updated on plan of care and expected duration. Pain level reassessed. Patient is alert, oriented x 3, equal unlabored respirations, skin warm/dry/pink. 08:53 Reassessment: No changes from previously documented assessment. Patient and/or family ll1 updated on plan of care and expected duration. Pain level reassessed. Patient is alert, oriented x 3, equal unlabored respirations, skin warm/dry/pink. Vital Signs: 04:39 BP 119 / 72; Pulse 94; Resp 18; Pulse Ox 96% on R/A; Weight 71.21 kg; Height 5 ft. 3 sm5 in. (160.02 cm); Pain 7/10; 05:19 BP 123 / 70 LA Supine (auto/reg); sm5 05:19 BP 133 / 75 RA Supine (auto/reg); sm5 07:03 BP 114 / 71; Pulse 60; Resp 17; Temp 98.3; Pulse Ox 96% ; Pain 0/10; ll1 04:39 Body Mass Index 27.81 (71.21 kg, 160.02 cm) sm5 ED Course: 04:22 Patient arrived in ED. bp1 04:24 Olga Davalos RN is Primary Nurse. sm5 04:28 Soren Muller MD is Attending Physician. shen 04:40 Triage completed. sm5 04:40 Arm band placed on right wrist. sm5 04:41 No provider procedures requiring assistance completed. Inserted saline lock: 20 gauge sm5 in right antecubital area, using aseptic technique. Blood collected. Patient maintains SpO2 saturation greater than 95% on room air. 04:43 Patient has correct armband on for positive identification. Placed in gown. Bed in low sm5 position. Call light in reach. Side rails up X 1. laboratory monitor on. Pulse ox on. NIBP on. 04:54 XRAY Chest (1 view) In Process Unspecified. EDMS 04:54 CBC with Automated Diff Sent. sm5 04:54 Liver (Hepatic) Function Sent. sm5 04:54 Basic Metabolic Panel Sent. sm5 04:54 SARS-COV-2 RT PCR (Document "Date of Onset" if Symptomatic) Sent. sm5 04:54 Lipase Sent. sm5 04:54 Basic Metabolic Panel Sent. sm5 04:54 CBC with Diff Sent. sm5 04:54 LFT's Sent. sm5 04:54 XRAY Chest (1 view) Sent. sm5 04:54 Magnesium Sent. sm5 04:54 NT PRO-BNP Sent. sm5 04:54 PT-INR Sent. sm5 04:54 Troponin (emerg Dept Use Only) Sent. sm5 05:20 Louis Michele MD is Hospitalizing Provider. shen 07:11 Primary Nurse role handed off by Olga Davalos, LOVE eb 07:27 You Clement, LOVE is Primary Nurse. ll1 08:52 Inserted Patient admitted, IV remains in place. ll1 Administered Medications: 04:57 Drug: NS 0.9% 1000 ml Route: IV; Rate: 125 ml/hr; Site: right forearm; sm5 08:55 Follow up: Response: No adverse reaction; IV Status: Completed infusion; IV Intake: ll1 1000ml 05:39 Drug: Pepcid (famotidine) 20 mg Route: IVP; Site: right forearm; sm5 08:54 Follow up: Response: No adverse reaction ll1 05:41 Drug: Zofran (Ondansetron) 4 mg Route: IVP; Site: right forearm; sm5 08:54 Follow up: Response: No adverse reaction ll1 05:42 Drug: Aspirin Chewable Tablet 162 mg Route: PO; sm5 08:55 Follow up: Response: No adverse reaction ll1 05:42 Drug: PlaVIX (clopidogrel) 300 mg Route: PO; sm5 08:54 Follow up: Response: No adverse reaction ll1 05:42 Drug: Lopressor (metoprolol TARTRATE) 50 mg Route: PO; sm5 08:54 Follow up: Response: No adverse reaction ll1 05:43 Drug: Lovenox (enoxaparin) 71.21 mg Route: Sub-Q; Site: abdomen; sm5 08:55 Follow up: Response: No adverse reaction ll1 05:45 Drug: fentaNYL (PF) 50 mcg Route: IVP; Site: right forearm; sm5 08:54 Follow up: Response: No adverse reaction ll1 06:23 Drug: Potassium Effervescent Tablet 25 mEq Route: PO; sm5 08:53 Follow up: Response: No adverse reaction ll1 Intake: 08:55 IV: 1000ml; Total: 1000ml. ll1 Outcome: 05:22 Decision to Hospitalize by Provider. shen 08:30 Admitted to Tele accompanied by [facility], via wheelchair, room 204, with chart, Report ll1 called to Heydi Dubois RN 08:30 Condition: stable 08:30 Instructed on the need for admit. 08:53 Patient left the ED. ll1 Signatures: Dispatcher [employer] EDMS Soren Muller MD MD cha Botello, Elizabeth eb Lewis, Lynsay RN RN ll1 Judy Harris Sarah, RN RN sm5 Corrections: (The following items were deleted from the chart) 04:41 04:40 General: Appears sm5 sm5 05:51 05:43 Lovenox (enoxaparin) 1 mg/kg Sub-Q in abdomen sm5 sm5 07:05 06:50 Reassessment: No changes from previously documented assessment. Patient and/or ll1 family updated on plan of care and expected duration. Pain level reassessed. Patient is alert, oriented x 3, equal unlabored respirations, skin warm/dry/pink. . ll1
[2021-08-03] MEDS ORDERED: ENOXAPARIN 60 MG/0.6 ML SQ ONE (05:35)
[2021-08-03] MEDS: CLOPIDOGREL 75 MG TABLET PO SCH (05:42)
[2021-08-03 05:58] LABS: Urine Blood Negative (Negative); Urine Glucose Trace (Negative); Urine Protein Negative (Negative)
[2021-08-03] MEDS ORDERED: POTASSIUM 25 MEQ EFFERV TAB ONE ×2 (06:19→07:48)
[2021-08-03] MEDS ORDERED: ACETAMINOPHEN 500 MG TAB PO PRN (07:07)
[2021-08-03] MEDS ORDERED: FENTANYL CITR 100 MCG/2 ML IV PRN (07:07)
[2021-08-03] MEDS ORDERED: ONDANSETRON 4 MG/2 ML VIAL IV PRN (07:07)
--- NOTE | 2021-08-03 07:24 | RAD REPORT ---
EXAM DESCRIPTION: CTAngio Aorta For Dissection - 08/03/2021 6:48 am CLINICAL HISTORY: CHEST PAIN COMPARISON: No comparisons TECHNIQUE: CT of the chest, abdomen, and pelvis was performed. Contrast was administered. MIPS and r econstructions were performed. All CT scans are performed using dose optimization technique as appropriate and may include automated exposure control or mA/KV adjustment according to patient size. FINDINGS: Aorta: No aneurysm or dissection identified. Mild atherosclerotic changes scattered throug hout the length of the aorta. The major branch vessels are patent Thorax: Chest Wall: 3 cm left thyroid lesion. Lungs: No acute abnormality. 3 mm nodule right upper lobe on image 48, series 4 to is likely benign. Pleura: No effusions or pneumothorax. Halina/Mediastinum: No lymphadenopathy. Small hiatal hernia. Pulmonary Arteries: Unremarkable Heart: Cardiomegaly. No pericardial effusion. Abdomen/Pelvis: Liver: No acute abnormality or suspicious lesions. Biliary: Cholecystectomy. Mild biliary ductal dilatation which is likely related to the postcholecyst ectomy state. Stomach: No significant focal abnormality. Duodenum: No significant focal abnormality. Pancreas: No significant abnormality. Spleen: No significant abnormality. Adrenal: No suspicious lesions. Kidney/ureter: No hydronephrosis. No renal calculi. Too small to characterize and/or benign appearing renal lesions are noted. Mild right renal scarring. Retroperitoneum: No retroperitoneal adenopathy. Bowel: No significant focal abnormality. Diverticulosis without diverticulitis. Peritoneum: No ascites or free air. Small fat containing inguinal hernias. Bladder: Grossly unremarkable. Reproductive: No adnexal masses. Hysterectomy. Bones: T8 and T12 compression fractures with approximately 30% loss and 20% loss of height, respectiv fabi. These are favored chronic. IMPRESSION: No aortic aneurysm or dissection is identified. No pulmonary embolus. No acute findings are identified. Indeterminate 3 cm left thyroid nodule which can be further evaluated with ultrasound if clinically i ndicated.
[2021-08-03 07:35] VITALS: BMI 27.3
--- NOTE | 2021-08-03 07:46 | RAD REPORT ---
EXAM DESCRIPTION: RAD - Chest Single View - 08/03/2021 4:54 am CLINICAL HISTORY: CHEST PAIN COMPARISON: Abdomen 1 View (KUB) dated 12/06/2020; Chest Pa And Lat (2 Views) dated 05/25/2018; ABDOME N 1 VIEW KUB dated 06/09/2012; CHEST SINGLE VIEW dated 07/12/2009; Angio Aorta For Dissection dated 08/03/2021 FINDINGS: Lines: None. Lungs: No evidence of edema or pneumonia. Pleural: No significant pleural effusions or pneumothorax. Cardiac: The heart size is within normal limits. Bones: No acute fractures. Other: IMPRESSION: No acute cardiopulmonary disease.
[2021-08-03] MEDS ORDERED: ENOXAPARIN 80 MG/0.8 ML SQ ONE (07:48)
[2021-08-03] MEDS: POTASSIUM 25 MEQ EFFERV TAB PO SCH (08:45)
[2021-08-03] MEDS ORDERED: ENOXAPARIN 100 MG/ML SYR SQ SCH (09:00)
[2021-08-03] MEDS ORDERED: ASPIRIN EC 81 MG TAB PO SCH (09:00)
[2021-08-03] MEDS ORDERED: GLUCAGON 1 MG/VIAL IM PRN (11:15)
[2021-08-03] MEDS ORDERED: D50W 25 GM/50 ML SYRINGE IV PRN (11:15)
[2021-08-03] MEDS: INSULIN -REGULAR HUMAN 50 UNIT/0.5 ML ML SQ SCH ×3 (11:30→20:59)
--- NOTE | 2021-08-03 13:07 | HP ---
Date of Admission: 08/03/2021 Chief Complaint: Chest pain. History Of Present Illness: This is an 81-year-old very pleasant female patient, who was doing fine in her normal usual state of health until around 0130 this morning. She woke up from her sleep with retrosternal chest pain that radiated around to her left breast and then radiated to her left arm. T he pain also radiated to her left scapula. She had low shortness of breath with this. She was littl e diaphoretic and some nausea with this. She took 4 aspirin each one 81 mg dose and she took 4 table ts right away and requested her daughter to bring her to the emergency room. After she was evaluated in the ER, she was given some medication and her pain got relieved and after that she has not had an y recurrence of chest pain. The patient reports that she had similar episode about a month ago and a t that time, her symptoms were identical and she also had some left jaw pain. After that episode, chantelle tucker saw her burn out tender lace, Dr. Umana in [place] and he did an echo and a Holter on her and was planni trang to do outpatient stress test, which has not been done yet as patient reports. Allergies: TO CODEINE AND SULFA. Medications: List reviewed. Review of Systems: Cardiovascular: As mentioned above. All other systems reviewed and negative. Past Medical History: Significant for hypertension, hyperlipidemia, type 2 diabetes mellitus, divert iculosis, COPD, osteopenia. Past Surgical History: Tonsillectomy, hysterectomy with bilateral salpingo-oophorectomy, appendectom y, cholecystectomy, cataract surgery, small bowel resection in the past, retinal detachment and surge ry. Social History: Negative for smoking, alcohol use. Family History: Brother and sister had atrial fibrillation. Mother , had colon cancer. Father , had pancreatic cancer. Mother had congestive heart failure and diabetes. Physical Examination: Vital Signs: Temperature 98.3, pulse 62, respiratory rate 17, blood pressure 120/62, oxygen saturati on 97% on room air. Height 5 feet 3 inches, weight 157 pounds. General: Awake, alert, oriented, not in distress. HEENT: Head atraumatic, normocephalic. Conjunctivae nonerythematous. Sclerae white. Mouth, no thr ush or edema noted. Ears/Nose, no mass, lesion, discharge noted. Neck: Supple. No JVD, lymph nodes, bruit, thyromegaly noted. Lungs: Bilateral good equal air entry. Clear to auscultation. No rhonchi. No rales. Heart: Normal heart sounds, no murmur or gallop. Abdomen: Soft, bowel sounds normal. No guarding, rigidity, tenderness, mass, hepatosplenomegaly, di stention, or bruit noted. Extremities: No leg edema. No calf tenderness. Skin: No rash, ulcer, cellulitis. Lymphatics: No lymph node enlargement in neck, supraclavicular, infraclavicular region. Neuro: No focal neurological deficit. Chest: Unremarkable. External Genitalia: Deferred. Rectal: Deferred. Laboratory Studies: EKG, no acute ST-T changes. White count 7.3, hemoglobin 13.1, platelets 284. S odium 142, potassium 3.4, chloride 105, bicarb 27, BUN 33, creatinine 1.02, glucose 215, calcium 10.4 . Liver function tests unremarkable. First troponin less than 0.02. Second troponin 0.02. ProBNP 514. Lipase 37. Urinalysis, trace leukocyte esterase, otherwise normal. COVID-19 test negative. C hest x-ray, no acute cardiopulmonary changes. CT scan of aorta per dissection protocol shows no evid ence of aortic aneurysm or dissection. No pulmonary embolism. No other acute findings. There is pr esence of 3 cm left thyroid nodule and compression fracture deformity of T8 and T12, approximately 30 % and 20% loss respectively. This appears to be chronic. Impression: 1.Unstable angina. 2.Hypokalemia. 3.Type 2 diabetes mellitus, uncontrolled. 4.Hypertension. 5.Hyperlipidemia. 6.Osteoporosis. 7.Chronic obstructive pulmonary disease. Plan: We will admit the patient to hospital for further evaluation and management of this problem. The patient is appropriate for inpatient and is expected to spend 2 midnights in hospital. I did exp haleigh it to patient regarding my concerns about having unstable angina at this point on basis of her s ymptoms and she was started on aspirin, Plavix, Lovenox. We will continue that. We will get a fasti ng lipid profile tomorrow morning and we will go ahead and start her on statin therapy, starting maria rrow. Consult Cardiology and Dr. Orellana, who is on-call and I did call and communicate with him. I did talk to patient regarding options of doing either stress test or cardiac catheterization for part of further workup as evaluation and treatment and my recommendation to her is to go directly for car diac cath and not to do stress test and she understands and agrees with that recommendation. I also communicated with Dr. Orellana, who will evaluate the patient and he also tend to agree with this that we should directly take her to cardiac cath and not do the stress test for her. We will repeat blood work tomorrow morning and I will see her tomorrow for followup. Diabetes will be managed with slidi ng scale insulin per order and home medications will be continued per order. Short thyroid nodule, w e will consider doing thyroid ultrasound and no need for any intervention at this time for compressio n fracture noted on thoracic spine, which appears to be old and by definition, this is considered ost eoporosis. I will see her tomorrow for followup. HITESH/MODL Voice ID: [id number]
--- NOTE | 2021-08-03 17:28 | CON ---
Date of Consultation: 08/03/2021 Reason For Consultation: Chest pain. History Of Present Illness: 81-year-old female, who has a past medical history of hypertension, diab etes, dyslipidemia, presented with chest pain, pressure like, woke her up from sleep, radiates to the left upper extremity and the left breast area along with nausea, lasted for close to 1 hour and reso lved. She has been having those episodes more frequently lately and the patient follows with Cardiol tom elsewhere and it was planned to have a stress test as an outpatient. However, her symptoms are b ecoming more frequent and suggestive of unstable angina. Past Medical History: Hypertension, dyslipidemia, diabetes, COPD. Medications: Refer reconciliation sheet for detailed list. Allergies: CODEINE AND SULFA. Past Surgical History: Tonsillectomy, hysterectomy, appendectomy, cholecystectomy. Family History: No mature coronary artery disease or cancer. Social History: Does not smoke or drink. Does not use any drugs. Review of Systems: All systems reviewed and they were negative except as mentioned in HPI. Physical Examination: Vital Signs: Reviewed. Temperature is 97.3, pulse 69, breathing 18, blood pressure is 149/72, satur ating 94% on room air. General: Pleasant elderly female, in no apparent distress. Head and Neck: Pupils are equal and reactive to light. Intact eye movements. No JVD. No cervical lymphadenopathy. Neck is supple. Thyroid is not enlarged. Lungs: Clear to auscultation bilaterally. No rhonchi, rales, or crackles. No accessory muscle use. Heart: Regular rate and rhythm. No extra sounds. Abdomen: Soft, nontender. Bowel sounds positive. No organomegaly. No masses or hernia. No rigidi ty or rebound. Extremities: No edema, clubbing, or cyanosis. Intact pulses. Skin: No rash. Neurologic: Alert, awake, oriented x3. No acute focal infiltrate. Investigation: Hemoglobin 13.1. Creatinine is 1.02. Troponin less than 0.02. EKG, no acute specif ic abnormalities. Assessment And Recommendations: Unstable angina. Symptoms are highly suggestive of unstable angina. The patient has multiple risk factors including her age, diabetes, hypertension. Discussed the grace e with Dr. Michele, who planned to keep over the weekend, trend cardiac enzymes, and to treat her with a spirin and Plavix are to be continued and continue therapeutic dose of Lovenox. Last dose of Lovenox to be given on Thursday evening. The plan for coronary angiogram on Thursday. Risks, benefits, and alt ernatives were explained to the patient, discussed with her in details, and she agreed to the procedu re. Also obtain an echocardiogram on Thursday. Thank you for the consult. /JOCELIN Voice ID: [id number] Report ID: [id number]
[2021-08-03] MEDS ORDERED: POTASSIUM 25 MEQ EFFERV TAB PO ONE (20:00)
[2021-08-03] MEDS: ENOXAPARIN 80 MG/0.8 ML SQ SCH (20:57)
[2021-08-03] MEDS: METOPROLOL TAR 25 MG TAB PO SCH (20:58)
[2021-08-03] MEDS: AMLODIPINE 5 MG TAB PO SCH (20:59)
[2021-08-04] MEDS: METOPROLOL TAR 25 MG TAB PO SCH ×2 (06:00→17:18)
[2021-08-04 06:33] LABS: Absolute Lymphocytes (CBC) 1.9 K/uL (0.7-4.9); Basophils % 0.7 % (0-1.3); Hematocrit 37.2 % (36.0-45.0); Lymphocytes % 40.2 % (15.3-44.8); MPV 7.8 fL (7.6-11.3); RBC Red Blood Cell Count 4.07 M/uL (3.86-4.86)
[2021-08-04 06:44] LABS: Magnesium 2.3 mg/dL (1.8-2.4); Potassium 3.6 mmol/L (3.5-5.1)
[2021-08-04] MEDS: INSULIN -REGULAR HUMAN 50 UNIT/0.5 ML ML SQ SCH ×4 (07:30→20:35)
[2021-08-04] MEDS: POTASSIUM 25 MEQ EFFERV TAB PO SCH (08:36)
[2021-08-04] MEDS: ASPIRIN EC 81 MG TAB PO SCH (08:36)
[2021-08-04] MEDS: CLOPIDOGREL 75 MG TABLET PO SCH (08:37)
[2021-08-04] MEDS: AMLODIPINE 5 MG TAB PO SCH ×2 (08:37→20:41)
[2021-08-04] MEDS: ENOXAPARIN 80 MG/0.8 ML SQ SCH ×2 (08:39→20:41)
--- NOTE | 2021-08-04 11:30 | PN ---
Date of Progress Note: 08/04/2021 Subjective: The patient was seen this morning for followup. She was sitting in the chair. Denied any complaints. She reports having a couple of episodes of very minimal chest discomfort. Nothing compared to what it was before, lasted for very short time and got resolved on its own. This morning when I saw her, she was asymptomatic. Denied any complaints. Objective: Vital Signs: Reviewed. HEENT: Unremarkable. Lungs: Clear to auscultation. Heart: Sounds normal. Abdomen: Soft. Bowel sounds normal. No guarding, rigidity, tenderness, distention. Extremities: No leg edema. Laboratory Data: White count 4.7, hemoglobin 12.6. Sodium 143, potassium 3.6, chloride 109, bicarb 29, BUN 19, creatinine 0.68, glucose 142. Hemoglobin A1c 6.7, triglycerides 193, total cholesterol 154, LDL 72, HDL 43. Impression: 1. Unstable angina. 2. Type 2 diabetes mellitus. 3. Hypertension. 4. Hyperlipidemia. Plan: We will go ahead and continue current medication. The patient is on aspirin, Plavix, Lovenox. We will continue that. We will start her on high dose statin therapy starting today. Cardiology consultation is appreciated and director of sports medicine is planning to do cardiac cath tomorrow. I will see her tomorrow for followup. The patient understands and agrees to proceed with cardiac cath, which is scheduled for tomorrow by director of sports medicine. HITESH/MODKamilah Voice ID: [id number] Report ID: [id number]
--- NOTE | 2021-08-04 17:21 | PN ---
Date of Progress Note: 08/04/2021 Subjective: Seen by bedside. She is lying comfortably in bed. No further chest pain today. Review of Systems: No chest pain, shortness of breath, orthopnea, cough. No nausea, vomiting, diarrhea. No abdominal p ain. No dysuria, polyuria, or urinary urgency. All other systems reviewed and are negative. Physical Examination: Vital Signs: Reviewed. Head and Neck: Pupils are equal, reactive to light. Intact eye movements. No JVD. No cervical lym phadenopathy. Neck: Supple. Thyroid is not enlarged. Lungs: Clear to auscultation bilaterally. No rhonchi, rales, or crackles. No accessory muscle use. Heart: Regular rate and rhythm. No extra sounds. Abdomen: Soft, nontender. Bowel sounds positive. No organomegaly. No masses or hernia. No rigidi ty or rebound. Extremities: No edema, clubbing, or cyanosis. Intact pulses. Skin: No rash. Neuro: Alert, awake, oriented x3. No active focal deficits appreciated. Investigations: Labs were reviewed. Assessment And Recommendations: 1.Unstable angina. Keep n.p.o. past midnight for coronary angiogram tomorrow. Please hold Lovenox after this evening's dose. Continue Plavix. 2.Hypertension. Blood pressure is uncontrolled. The patient could benefit from adding lisinopril a nd up titrate as needed. SR/MODL Voice ID: [id number] Report ID: [id number]
[2021-08-04] MEDS: ATORVASTATIN 80 MG TAB PO SCH (20:41)
[2021-08-05] MEDS: METOPROLOL TAR 25 MG TAB PO SCH ×2 (05:37→18:10)
[2021-08-05 05:58] LABS: Potassium 3.5 mmol/L (3.5-5.1)
[2021-08-05] MEDS: INSULIN -REGULAR HUMAN 50 UNIT/0.5 ML ML SQ SCH ×3 (07:30→16:30)
[2021-08-05] MEDS: CLOPIDOGREL 75 MG TABLET PO SCH (08:38)
[2021-08-05] MEDS: ASPIRIN EC 81 MG TAB PO SCH (08:38)
[2021-08-05] MEDS: POTASSIUM 25 MEQ EFFERV TAB PO SCH ×2 (08:39→18:11)
[2021-08-05] MEDS: AMLODIPINE 5 MG TAB PO SCH ×2 (08:39→20:23)
[2021-08-05] MEDS ORDERED: D5 0.9 NS 1,000 ML IV SCH (12:00)
[2021-08-05] MEDS ORDERED: LIDOCAINE 1% 20 ML MDV ONE (15:10)
[2021-08-05] MEDS ORDERED: HEPA 1000U/500MLS 2,000 UNIT/1,000 ML BAG IV ONE (15:10)
[2021-08-05] MEDS ORDERED: MIDAZOLAM HCL 2 MG/2 ML INJ ONE (15:11)
[2021-08-05] MEDS ORDERED: NITROGLYCERIN 100 MCG/ML SYR (for cath lab use only) IV ONE (15:11)
[2021-08-05] MEDS ORDERED: FENTANYL CITR 100 MCG/2 ML ONE (15:11)
[2021-08-05] MEDS ORDERED: ATROPINE SULF 1 MG/10 ML SYR IV ONE (15:11)
[2021-08-05] MEDS ORDERED: HEPARIN 5000 UNIT/ML 1 ML VIAL ONE (15:11)
[2021-08-05] MEDS ORDERED: VERAPAMIL HCL 10 MG/4 ML VIAL IV ONE (15:11)
[2021-08-05] MEDS ORDERED: NA CHLORIDE 0.9% 500 ML ONE (15:22)
[2021-08-05] MEDS ORDERED: HYDRALAZINE HCL 20 MG/ML VIAL ONE (15:52)
[2021-08-05 17:17] VITALS: O2SAT 96
[2021-08-05 17:49] VITALS: TEMP 97.3
--- NOTE | 2021-08-05 18:12 | OP ---
Date of Procedure: 08/05/2021 Surgeon: MANJU AYALA Procedures Performed: 1.Selective coronary angiogram. 2.Left heart catheterization. 3.LV-gram. Indication: Unstable angina. Access: Right femoral artery 6-Colombian closed with 6-Colombian Angio-Seal. Anesthesia: Moderate sedation time was 25 minutes. Complications: None. Bleeding: Less than 10 mL. Description Of Procedure: After risks, benefits, and alternatives were explained, the patient agreed to the procedure and signed informed consent. The patient was brought into the cardiac catheterizat ion laboratory, prepped and draped in usual sterile fashion. She was given Versed and fentanyl in in cremental doses to achieve adequate moderate sedation. Then, I accessed right femoral artery using a micropuncture kit and ultrasound and I placed 6-Colombian [place] sheath and took 6-Colombian JR4 cathete r into the aortic root and engaged the right coronary artery, took standard views and advanced the ca theter over the wire into the LV. Took LVEDP measurements and LV-gram was done and the pullback did not record any gradient. I exchanged for 6-Colombian JL4 catheter into the aortic root, engaged left ma in, took standard views and then removed the catheter and sheath was removed, and placed a 6-Colombian A ngio-Seal with good hemostasis. Findings: 1.Left main; large and normal. 2.LAD; large and normal. 3.Left circumflex; large, dominant and normal. 4.RCA; small, nondominant and normal. 5.Normal ejection fraction of 65%. Normal wall motion. 6.Normal LVEDP 9 mmHg. Conclusion: 1.Normal coronary arteries. 2.Normal LVEF and normal LVEDP. Recommendation: Evaluate for other causes of chest pain. SR/MODL Voice ID: [id number] Report ID: [id number]
[2021-08-05] MEDS: ATORVASTATIN 80 MG TAB PO SCH (20:23)
[2021-08-05 20:26] VITALS: BP 135/69
--- NOTE | 2021-08-06 05:18 | DS ---
Date of Discharge: 08/05/2021 Disposition: Discharged to go home. Physical Examination: HEENT: Unremarkable. Lungs: Clear to auscultation. Heart: Sounds normal. Abdomen: Soft, bowel sounds normal. No guarding, rigidity, tenderness, or distention. Extremity: No leg edema. Discharge Medications And Instructions: 1.Continue all prior home medication except stop metformin. 2.Follow up at my office next week on Thursday, which is 08/12/2021 at 10 a.m. 3.Patient to come to my office for known fasting blood work to be done this week on , which is 08/08/2021. Laboratory Data: Upon admission, white count 7.3, hemoglobin 13.1, platelets 284 and next day white count 4.7, hemoglobin 12.6, and platelets 268. Last chemistry today; sodium 144, potassium 3.5, chlo ride 112, bicarb 26, BUN 25, creatinine 0.70, glucose 176. Hemoglobin A1c 6.7, triglyceride 193, tot al cholesterol 154, LDL 72, HDL 43. Upon admission, sodium 142, potassium 3.4, chloride 105, bicarb 27, BUN 33, creatinine 1.02, glucose 215. Liver function tests unremarkable. First troponin less th an 0.02. Second troponin 0.02. Hospital Course: This is an 81-year-old very pleasant female patient, admitted to the hospital with chest pain. Please see dictated H and P for more information. After patient was evaluated in the ER , she was admitted to the hospital. Her symptoms were consistent with unstable angina. The patient was admitted to the hospital. She was started on aspirin, Plavix, Lovenox. Cardiology consultation was obtained. Home medications were continued. Overall, her condition remained stable and Dr. Sarah diaz from Cardiology evaluated her and the patient was recommended to have cardiac cath, which was done today and Dr. Orellana called and informed me that cardiac cath was normal, so after the rest period wa s over, decision was made to discharge the patient to go home in stable condition with above-mentione d medications and instructions. Final Diagnoses: 1.Unstable angina. 2.Hypokalemia. 3.Type 2 diabetes mellitus, uncontrolled. 4.Hypertension. 5.Hyperlipidemia. 6.Osteoporosis. 7.Chronic obstructive pulmonary disease. HITESH/MODL Voice ID: [id number] Report ID: [id number]
== END 2021-08-05 20:39 | disposition home or self-care (01) | DRG 287 ==
LOC: ER 04:19 → ERHOLD 05:34 → 2ND 08:35 → OBSVTOIN 11:15
PROVIDERS: ADMIT Internal Medicine; ATTEND Internal Medicine
PROC: 4A023N7 Measurement of Cardiac Sampling and Pressure, Left Heart, Percutaneous Approach (ICD-10-PCS; principal; 2021-08-05)
PROC: B2111ZZ Fluoroscopy of Multiple Coronary Arteries using Low Osmolar Contrast (ICD-10-PCS; 2021-08-05)
PROC: B2151ZZ Fluoroscopy of Left Heart using Low Osmolar Contrast (ICD-10-PCS; 2021-08-05)
DX: I20.0 Unstable angina (principal); E87.6 Hypokalemia; E11.65 Type 2 diabetes mellitus with hyperglycemia; I10 Essential (primary) hypertension; J44.9 Chronic obstructive pulmonary disease, unspecified; M81.0 Age-related osteoporosis without current pathological fracture; E78.5 Hyperlipidemia, unspecified; Z79.899 Other long term (current) drug therapy; Z88.5 Allergy status to narcotic agent; Z88.1 Allergy status to other antibiotic agents; Z79.84 Long term (current) use of oral hypoglycemic drugs; Z79.82 Long term (current) use of aspirin; Z87.891 Personal history of nicotine dependence; Z90.710 Acquired absence of both cervix and uterus; Z90.49 Acquired absence of other specified parts of digestive tract; Z20.822 Contact with and (suspected) exposure to COVID-19
CPT/HCPCS: 36415; 71045; 71275; 74175; 80048; 80061; 80076; 81003; 82947; 83036; 83690; 83735; 83880; 84484; 85025; 85610; 93005; 93458; 94010; 96361; 96372; 96374; 96375; 99285; C1760; C1893; G0378; J0360; J1644; J1650; J2250; J2405; J3010; J7030; J7040; J7042; Q9967; U0003

== ENCOUNTER 2024-07-04 21:37 | Inpatient (IN) | payer OTHER ==
[2024-07-04] MEDS ORDERED: NITROGLYCERIN 1 GM PKT TD ONE (22:13)
[2024-07-04] MEDS ORDERED: FUROSEMIDE 40 MG/4 ML VIAL ONE (22:13)
[2024-07-04 22:35] LABS: Absolute Basophils 0.1 K/uL (0-0.5); Absolute Eosinophils 0.1 K/uL (0-0.5); Absolute Lymphocytes (CBC) 1.6 K/uL (0.7-4.9); Absolute Neutrophil 5.7 K/uL (1.8-8.0); Basophils % 0.6 % (0-1.3); Eosinophils % 1.6 % (0-4.4); Hematocrit 39.9 % (36.0-45.0); Lymphocytes % 18.6 % (15.3-44.8); MCH 30.1 pg (27.0-35.0); MCHC 32.6 g/dL (32.0-36.0); MCV 92.1 fL (80-100); MPV 7.7 fL (7.6-11.3); Monocytes % 11.5 % (3.3-12.3); Neutrophils % 67.7 % (41.7-73.7); Nucleated Red Blood Cells % 0.1 % (0-0); Platelets 264 thou/uL (152-406); RBC Red Blood Cell Count 4.33 M/uL (3.86-4.86); Red Cell Distribution Width 14.6 % (12.1-15.2)
--- NOTE | 2024-07-04 22:48 | RAD REPORT ---
EXAMINATION: ONE VIEW CHEST XR CLINICAL INDICATION: Female, 84 years old.,DYSPNEA TECHNIQUE: Frontal chest projection is submitted. Examination is limited by patient positioning and t echnique. COMPARISON: 08/03/2021 FINDINGS: Dependent bilateral airspace opacities more on the left. No pneumothorax or sizable effusion. The he art is normal in size. Mediastinal contours are unremarkable. IMPRESSION: Bilateral basilar airspace opacities more on the left, may reflect atelectasis or pneumonia.
[2024-07-04 22:50] LABS: Albumin 4.1 g/dL (3.4-5.0); Albumin/Globulin Ratio 1.2 (1.1-1.8); Anion Gap 9.2 mEq/L (5.0-15.0); Bilirubin Direct 0.2 mg/dL (0-0.2); Bilirubin Indirect, Calculated 0.3 mg/dL (0.2-0.8); Bilirubin Total 0.5 mg/dL (0.2-1.0); Globulin 3.5 g/dL (2.3-3.5); Potassium 3.2 mEq/L (3.5-5.1); Protein, Total 7.6 g/dL (6.4-8.2); Troponin High Sensitivity 9.2 pg/mL (<58.9)
[2024-07-05 00:31] LABS: SARS-CoV-2 Antigen CONTROL BLUE LINE VIS/BG OK; SARS-CoV-2 Antigen Rapid Res Negative (Negative)
--- NOTE | 2024-07-05 00:43 | ER ---
Nurse's Notes [facility] Name: Razia Hernandez Age: 84 yrs Sex: Female : 1940 Arrival Date: 07/04/2024 Time: 21:37 Bed 2 Private MD: Diagnosis: CHF exacerbation;Hypertension Presentation: 07/04 21:49 Chief complaint: Patient states: shortness of breath getting worse due to being told to bm8 stop taking diuretics, chest pain and htn. Coronavirus screen: At this time, the client does not indicate any symptoms associated with coronavirus-19. Ebola Screen: Patient negative for fever greater than or equal to 101.5 degrees Fahrenheit, and additional compatible Ebola Virus Disease symptoms Patient denies exposure to infectious person. Patient denies travel to an Ebola-affected area in the 21 days before illness onset. No symptoms or risks identified at this time. Initial Sepsis Screen: Does the patient meet any 2 criteria? No. Patient's initial sepsis screen is negative. Does the patient have a suspected source of infection? No. Patient's initial sepsis screen is negative. Risk Assessment: Do you want to hurt yourself or someone else? Patient reports no desire to harm self or others. Onset of symptoms was June 24, 2024 at 08:00. 21:49 Method Of Arrival: Ambulatory bm8 21:49 Acuity: JUSTYNA 2 bm8 Triage Assessment: 21:50 General: Appears in no apparent distress. comfortable, Behavior is calm, cooperative, bm8 appropriate for age. Pain: Complains of pain in chest and head Pain currently is 6 out of 10 on a pain scale. EENT: No deficits noted. No signs and/or symptoms were reported regarding the EENT system. Neuro: No deficits noted. Level of Consciousness is awake, alert, obeys commands, Oriented to person, place, time, situation, Appropriate for age. Cardiovascular: Reports chest pain, shortness of breath, htn Heart tones S1 S2 present Capillary refill < 3 seconds in bilateral fingers Patient's skin is warm and dry. Rhythm is sinus rhythm. Respiratory: Reports shortness of breath at rest on exertion Airway is patent Respiratory effort is even, unlabored, Respiratory pattern is regular, symmetrical, Breath sounds with crackles bilaterally. in left posterior lower lobe and right posterior lower lobe Onset: The symptoms/episode began/occurred 2 weeks, the patient has mild shortness of breath. GI: No signs and/or symptoms were reported involving the gastrointestinal system. : No signs and/or symptoms were reported regarding the genitourinary system. Derm: No signs and/or symptoms reported regarding the dermatologic system. Musculoskeletal: No signs and/or symptoms reported regarding the musculoskeletal system. Historical: - Allergies: 21:50 Codeine; bm8 21:50 Sulfa (Sulfonamide Antibiotics); bm8 21:50 Tramadol HCl; bm8 - Home Meds: 21:50 aspirin 81 mg Oral TbEC 1 tab once daily [Active]; Benicar 40 mg Oral tab 1 tab once bm8 daily [Active]; fenofibrate Oral [Active]; Fosamax Oral [Active]; Metformin Oral [Active]; metoprolol tartrate 25 mg Oral tab 1 tab 2 times per day [Active]; multivitamin Oral [Active]; Norvasc 10 mg Oral tab 1 tab once daily [Active]; - PMHx: 21:50 Diabetes - NIDDM; Hyperlipidemia; Hypertension; bm8 - Immunization history:: Adult Immunizations up to date. - Infectious Disease History:: Denies. - Social history:: Smoking status: Patient denies any tobacco usage or history of. Patient/guardian denies using alcohol, street drugs. - Family history:: not pertinent. Screenin:16 [facility] ED Fall Risk Assessment (Adult) History of falling in the last 3 months, bm8 including since admission No falls in past 3 months (0 pts) Confusion or Disorientation No (0 pts) Intoxicated or Sedated No (0 pts) Impaired Gait No (0 pts) Mobility Assist Device Used No (0 pt) Altered Elimination No (0 pt) Score/Fall Risk Level 0 - 2 = Low Risk Oriented to surroundings, Maintained a safe environment, Hourly rounding (assess needs \\T\\ fall precautionary measures) done. Abuse screen: Denies threats or abuse. Denies injuries from another. Nutritional screening: No deficits noted. Tuberculosis screening: No symptoms or risk factors identified. Assessment: 23:46 Reassessment: Patient appears in no apparent distress at this time. Patient and/or bm8 family updated on plan of care and expected duration. Pain level reassessed. Patient is alert, oriented x 3, equal unlabored respirations, skin warm/dry/pink. Patient states feeling better. Patient states symptoms have improved. General: Appears in no apparent distress. comfortable, Behavior is calm, cooperative. Pain: Complains of pain in HEAD Pain currently is 3 out of 10 on a pain scale. Neuro: No deficits noted. Level of Consciousness is awake, alert, obeys commands, Oriented to person, place, time, situation, Appropriate for age Reports headache. Cardiovascular: Heart tones S1 S2 present Capillary refill < 3 seconds in bilateral fingers toes Patient's skin is warm and dry. Respiratory: Airway is patent Respiratory effort is even, unlabored, Respiratory pattern is regular, symmetrical, Breath sounds are diminished bilaterally. GI: No deficits noted. No signs and/or symptoms were reported involving the gastrointestinal system. : No deficits noted. No signs and/or symptoms were reported regarding the genitourinary system. EENT: No deficits noted. No signs and/or symptoms were reported regarding the EENT system. Derm: No deficits noted. No signs and/or symptoms reported regarding the dermatologic system. Musculoskeletal: No deficits noted. No signs and/or symptoms reported regarding the musculoskeletal system. 07/05 01:39 Reassessment: Patient appears in no apparent distress at this time. Patient and/or bm8 family updated on plan of care and expected duration. Pain level reassessed. Patient is alert, oriented x 3, equal unlabored respirations, skin warm/dry/pink. Patient denies pain at this time. Patient states feeling better. Patient states symptoms have improved. Cardiovascular: Denies chest pain, Heart tones S1 S2 present Capillary refill < 3 seconds in bilateral fingers toes Patient's skin is warm and dry. Rhythm is sinus rhythm. Vital Signs: 07/04 21:49 BP 216 / 90; Pulse 73; Resp 20; Temp 98.6; Pulse Ox 98% ; Weight 65.77 kg; Height 5 ft. bm8 3 in. ; Pain 0/10; 21:55 BP 190 / 83; Pulse 72; Resp 17; Pulse Ox 98% on R/A; bm8 23:46 BP 180 / 80; Pulse 69; Resp 17; Temp 98.6; Pulse Ox 98% on R/A; Pain 3/10; bm8 07/05 01:39 BP 167 / 80; Pulse 70; Resp 20; Temp 98.6; Pulse Ox 95% on R/A; Pain 0/10; bm8 07/04 21:49 Body Mass Index 25.69 (65.77 kg, 160.02 cm) bm8 07/04 21:49 Pain Scale: Adult bm8 23:46 Pain Scale: Adult bm8 07/05 01:39 Pain Scale: Adult bm8 [place]man Coma Score: 07/04 23:46 Eye Response: spontaneous(4). Motor Response: obeys commands(6). Verbal Response: bm8 oriented(5). Total: 15. 07/05 01:39 Eye Response: spontaneous(4). Motor Response: obeys commands(6). Verbal Response: bm8 oriented(5). Total: 15. ED Course: 07/04 21:39 Patient arrived in ED. jj6 21:40 Wolf Lozoya MD is Attending Physician. rt 21:50 Triage completed. bm8 21:50 Arm band placed on right wrist. bm8 21:54 No provider procedures requiring assistance completed. EKG done, by ED staff, reviewed bm8 by Wolf Lozoya MD. 22:11 Christiano Kelsey, RN is Primary Nurse. bm8 22:12 Initial lab(s) drawn, by az, sent to lab. Inserted saline lock: 20 gauge in left wrist, bm8 using aseptic technique. Blood collected. Flushed with 10 mL NS. 22:13 Patient has correct armband on for positive identification. Placed in gown. Bed in low bm8 position. Call light in reach. Side rails up X2. Provided Education on: ER process and procedures.. Client placed on continuous cardiac and pulse oximetry monitoring. NIBP monitoring applied. media monitor on. 22:13 Missed attempt(s): 20 gauge in left forearm. Bleeding controlled, band aid applied, bm8 catheter tip intact. 22:20 XRAY Chest (1 view) In Process Unspecified. EDMS 23:46 Door closed. Noise minimized. Pillow given. Verbal reassurance given. Head of bed bm8 elevated. 23:46 Patient maintains SpO2 saturation greater than 95% on room air. bm8 07/05 00:42 Louis Michele MD is Hospitalizing Provider. rt 01:39 Provided Education on: need for admission. bm8 01:39 Patient admitted, IV remains in place. bm8 11:31 1131 CM met with and her daughter Bianca at the bedside in the ED exam room. ane Patient identified by name and > Demographic sheet confirmed. PCP Dr. Louis Michele. No MPOA in place. Patient states she lives with her handicapped daughter in a single story home that is equipped with a wheelchair ramp to enter the home. She reports that prior to admission, she performs ADLs independently, stating " I still drive." DME in in the home includes a wheelchair, CPAP machine and home is equipped with a walk in shower and shower seat. No HH, no home oxygen, CPAP is not in use. Patient states her preferred plan is to return home upon discharge and her daughter Bianca states she will transport her home. CM team will continue to follow and coordinate care during this hospital stay. Administered Medications: 07/04 22:29 Drug: Furosemide IVP 40 mg IVP once; give over 2 minutes Route: IVP; Site: left forearm;bm8 23:49 Follow up: Response: No adverse reaction bm8 22:29 Drug: Nitroglycerin Transdermal Ointment 2 % 1 inches Transdermal once Route: bm8 Transdermal; Site: anterior chest wall; 23:49 Follow up: Response: No adverse reaction bm8 07/05 01:38 Drug: LevaQUIN IVPB 750 mg IVPB once Route: IVPB; Site: right forearm; bm8 01:40 Follow up: Response: No adverse reaction; IV Status: Infusion continued upon admission bm8 03:04 Follow up: Response: No adverse reaction; IV Status: Completed infusion; IV Intake: bm8 150ml 04:27 Drug: Acetaminophen PO 650 mg PO once Route: PO; bm8 04:27 Follow up: Response: No adverse reaction bm8 Medication: 07/04 22:16 VIS not applicable for this client. bm8 Intake: 07/05 03:04 IV: 150ml; Total: 150ml. bm8 Outcome: 00:42 Decision to Hospitalize by Provider. rt 01:39 Admitted to ER Hold. Please see [facility] for further documentation. bm8 01:39 Condition: stable 01:39 Instructed on the need for admit, Demonstrated understanding of follow-up care, medications, 12:56 Patient left the ED. bp Signatures: Dispatcher [facility] EDCharles George RN RN bp Destiny Mora jj6 Wolf Lozoya MD MD rt Christiano Kelsey RN RN bm8 Dacia Aly, RN RN ane
--- NOTE | 2024-07-05 00:43 | EDPHYS ---
Physician Documentation [facility] Name: Razia Hernandez Age: 84 yrs Sex: Female : 1940 Arrival Date: 07/04/2024 Time: 21:37 Bed 2 Private MD: ED Physician Wolf Lozoya HPI: 07/04 22:04 This 84 yrs old Female presents to ER via Ambulatory with complaints of Shortness Of rt Breath, High Blood Pressure, Chest Tightness. 22:04 Patient presents to the ED dyspnea on exertion, with reported shortness of rt breath,orthopnea for the past 2 weeks coinciding with stopping Lasix due to increasing creatinine. Patient has associated high blood pressure. Reports have intermittent tightness in the chest, only mild currently. Denies of acute complaints, symptoms are moderate in severity, no other aggravating or alleviating factors.. Historical: - Allergies: 21:50 Codeine; bm8 21:50 Sulfa (Sulfonamide Antibiotics); bm8 21:50 Tramadol HCl; bm8 - Home Meds: 21:50 aspirin 81 mg Oral TbEC 1 tab once daily [Active]; Benicar 40 mg Oral tab 1 tab once bm8 daily [Active]; fenofibrate Oral [Active]; Fosamax Oral [Active]; Metformin Oral [Active]; metoprolol tartrate 25 mg Oral tab 1 tab 2 times per day [Active]; multivitamin Oral [Active]; Norvasc 10 mg Oral tab 1 tab once daily [Active]; - PMHx: 21:50 Diabetes - NIDDM; Hyperlipidemia; Hypertension; bm8 - Immunization history:: Adult Immunizations up to date. - Infectious Disease History:: Denies. - Social history:: Smoking status: Patient denies any tobacco usage or history of. Patient/guardian denies using alcohol, street drugs. - Family history:: not pertinent. ROS: 22:04 Constitutional: Negative for fever, chills, and weight loss, Abdomen/GI: Negative for rt abdominal pain, nausea, vomiting, diarrhea, and constipation, MS/Extremity: Negative for injury and deformity, Skin: Negative for injury, rash, and discoloration, Neuro: Negative for headache, weakness, numbness, tingling, and seizure, 22:04 Cardiovascular: Positive for chest pain, edema, 22:04 Respiratory: Positive for cough, dyspnea on exertion, orthopnea, shortness of breath, Exam: 22:04 Constitutional: This is a well developed, well nourished patient who is awake, alert, rt and in no acute distress. Head/Face: Normocephalic, atraumatic. Chest/axilla: Normal chest wall appearance and motion. Nontender with no deformity. No lesions are appreciated. Cardiovascular: Regular rate and rhythm with a normal S1 and S2. No gallops, murmurs, or rubs. Normal PMI, no JVD. No pulse deficits. Abdomen/GI: Soft, non-tender, with normal bowel sounds. No distension or tympany. No guarding or rebound. No evidence of tenderness throughout. Skin: Warm, dry with normal turgor. Normal color with no rashes, no lesions, and no evidence of cellulitis. Neuro: Awake and alert, GCS 15, oriented to person, place, time, and situation. Cranial nerves II-XII grossly intact. Motor strength 5/5 in all extremities. Sensory grossly intact. Cerebellar exam normal. Normal gait. Psych: Awake, alert, with orientation to person, place and time. Behavior, mood, and affect are within normal limits. 22:04 ECG was reviewed by the Attending Physician. 22:04 Respiratory: Bibasilar crackles, no respiratory distress, Vital Signs: 21:49 BP 216 / 90; Pulse 73; Resp 20; Temp 98.6; Pulse Ox 98% ; Weight 65.77 kg; Height 5 ft. bm8 3 in. ; Pain 0/10; 21:55 BP 190 / 83; Pulse 72; Resp 17; Pulse Ox 98% on R/A; bm8 23:46 BP 180 / 80; Pulse 69; Resp 17; Temp 98.6; Pulse Ox 98% on R/A; Pain 3/10; 8 07/05 01:39 BP 167 / 80; Pulse 70; Resp 20; Temp 98.6; Pulse Ox 95% on R/A; Pain 0/10; 8 07/04 21:49 Body Mass Index 25.69 (65.77 kg, 160.02 cm) [facility] 07/04 21:49 Pain Scale: Adult bm8 23:46 Pain Scale: Adult 8 07/05 01:39 Pain Scale: Adult bm8 [place] Coma Score: 07/04 23:46 Eye Response: spontaneous(4). Motor Response: obeys commands(6). Verbal Response: bm8 oriented(5). Total: 15. 07/05 01:39 Eye Response: spontaneous(4). Motor Response: obeys commands(6). Verbal Response: bm8 oriented(5). Total: 15. MDM: 07/04 21:56 Medical Screening Exam initiated rt 07/05 01:14 Differential diagnosis: CHF, hypertensive emergency. Data reviewed: vital signs, nurses rt notes, lab test result(s), EKG, radiologic studies. Consideration of Admission/Observation Patient was admitted/placed on observation. Management of patient was discussed with the following: Primary Care Provider: Agrees to admit. I considered the following discharge prescriptions or medication management in the emergency department Medications were administered in the Emergency Department. See MAR. Independent interpretation of the following test(s) in the Emergency Department X-Ray: My interpretation is Pulmonary edema seen on interpretation of x-ray images. Test considered but Not performed: CT: Do not suspect pulmonary embolism, CT angiogram not indicated. Care significantly affected by the following chronic conditions: Congestive Heart Failure. Counseling: I had a detailed discussion with the patient and/or guardian regarding the historical points, exam findings, and any diagnostic results supporting the discharge/admit diagnosis, lab results, radiology results, the need for further work-up and treatment in the hospital. Response to treatment: the patient's symptoms have markedly improved after treatment. 07/04 21:50 Order name: Basic Metabolic Panel; Complete Time: 23:00 rt 07/04 21:50 Order name: CBC with Diff; Complete Time: 23:00 rt 07/04 21:50 Order name: LFT's; Complete Time: 23:00 rt 07/04 21:50 Order name: NT PRO-BNP; Complete Time: 23:00 rt 07/04 21:50 Order name: Troponin HS; Complete Time: 23:00 rt 07/04 21:56 Order name: SARS RAPID; Complete Time: 00:34 rt 07/05 07:37 Order name: CBC with Automated Diff EDMS 07/05 07:54 Order name: Basic Metabolic Panel EDMS 07/05 07:54 Order name: Troponin High Sensitivity EDMS 07/05 07:54 Order name: Magnesium EDMS 07/05 08:00 Order name: Glucose, Ancillary Testing EDMS 07/05 12:31 Order name: Glucose, Ancillary Testing EDDC 07/04 21:50 Order name: XRAY Chest (1 view); Complete Time: 23:00 rt 07/05 09:02 Order name: CT EDDC 07/04 21:50 Order name: EKG; Complete Time: 21:51 rt 07/04 21:50 Order name: Cardiac monitoring; Complete Time: 22:12 rt 07/04 21:50 Order name: EKG - Nurse/Tech; Complete Time: 22:12 rt 07/04 21:50 Order name: IV Saline Lock; Complete Time: 22:12 rt 07/04 21:50 Order name: Labs collected and sent; Complete Time: 22:12 rt 07/04 21:50 Order name: O2 Per Protocol; Complete Time: 22:12 rt 07/04 21:50 Order name: O2 Sat Monitoring; Complete Time: 22:12 rt EC/11 22:04 Rate is 68 beats/min. Rhythm is regular, Normal Sinus Rhythm with No ectopy. QRS [place] rt is Normal. [place] interval is normal. QRS interval is normal. QT interval is normal. No Q waves. Clinical impression: NSR w/ Non-specific ST/T Changes. Administered Medications: 22:29 Drug: Furosemide IVP 40 mg IVP once; give over 2 minutes Route: IVP; Site: left forearm;bm8 23:49 Follow up: Response: No adverse reaction bm8 22:29 Drug: Nitroglycerin Transdermal Ointment 2 % 1 inches Transdermal once Route: bm8 Transdermal; Site: anterior chest wall; 23:49 Follow up: Response: No adverse reaction [facility] 07/05 01:38 Drug: LevaQUIN IVPB 750 mg IVPB once Route: IVPB; Site: right forearm; bm8 01:40 Follow up: Response: No adverse reaction; IV Status: Infusion continued upon admission bm8 03:04 Follow up: Response: No adverse reaction; IV Status: Completed infusion; IV Intake: bm8 150ml 04:27 Drug: Acetaminophen PO 650 mg PO once Route: PO; bm8 04:27 Follow up: Response: No adverse reaction bm8 Disposition Summary: 07/05/24 00:42 Hospitalization Ordered Notes: Hospitalization Status: Observation rt Provider: Louis Michele rt Condition: Stable rt Problem: new rt Symptoms: have improved rt Bed/Room Type: Standard rt Location: Telemetry/MedSurg (observation)(07/05/24 11:15) bd Room Assignment: 222(07/05/24 11:15) bd Diagnosis - CHF exacerbation rt - Hypertension rt Forms: - Medication Reconciliation Form rt - SBAR form rt - Leadership Thank You Letter rt Signatures: Dispatcher [employer] EDMS Kayleigh Radha bd Vashti Self RN RN cg Wolf Lozoya MD MD rt Christiano Kelsey RN RN bm8 Corrections: (The following items were deleted from the chart) 07/04 21:56 21:56 SARS-COV-2 Antigen Rapid+I.LAB.BRZ ordered. EDDC EDDC 07/05 01:27 00:42 Telemetry/MedSurg (observation) rt cg 01:27 00:42 rt cg 11: 01:27 [facility] ER HOLD cg bd : 01:27 ERHOLD- cg bd
[2024-07-05] MEDS ORDERED: Levofloxacin 750mg IV 750 MG/150 ML BAG IV ONE (01:24)
[2024-07-05 02:14] VITALS: BMI 25.7
[2024-07-05] MEDS: ACETAMINOPHEN 500 MG TAB PO ONE (04:07)
[2024-07-05] MEDS ORDERED: ACETAMINOPHEN 325 MG TABLET ONE (04:14)
[2024-07-05] MEDS: INSULIN REGULAR (HUMAN) 100 UNIT/ML SQ SCH (07:30)
[2024-07-05 07:35] LABS: Absolute Eosinophils 0.1 K/uL (0-0.5); Absolute Lymphocytes (CBC) 0.9 K/uL (0.7-4.9); Absolute Monocytes 0.7 K/uL (0.1-1.3); Absolute Neutrophil 4.2 K/uL (1.8-8.0); Basophils % 0.5 % (0-1.3); Eosinophils % 1.6 % (0-4.4); Hematocrit 38.4 % (36.0-45.0); Hemoglobin 12.8 g/dL (12.0-15.0); Lymphocytes % 15.5 % (15.3-44.8); MCH 30.3 pg (27.0-35.0); MCHC 33.4 g/dL (32.0-36.0); MCV 90.7 fL (80-100); MPV 7.5 fL (7.6-11.3); Monocytes % 12.4 % (3.3-12.3); Platelets 288 thou/uL (152-406); RBC Red Blood Cell Count 4.24 M/uL (3.86-4.86); Red Cell Distribution Width 14.6 % (12.1-15.2)
[2024-07-05 07:54] LABS: Anion Gap 9.2 mEq/L (5.0-15.0); Potassium 3.2 mEq/L (3.5-5.1); Troponin High Sensitivity 9.3 pg/mL (<58.9)
--- NOTE | 2024-07-05 08:50 | EKG ---
Test Date: 2024-07-04 Test Time: 21:51:18 Credit Risk Manager: CAMMIE MEASUREMENT RESULTS: Intervals: Rate: 68 OK: 150 QRSD: 86 QT: 394 QTc: 418 [place]: P: 68 OK: 150 QRS: 55 T: -30 INTERPRETIVE STATEMENTS: Normal sinus rhythm ST & T wave abnormality, consider inferolateral ischemia Abnormal ECG Compared to ECG 08/03/2021 04:32:05 No significant changes Electronically Signed On 07-05-24 08:49:41 COORDINATOR CARDIOPULMONARY SERVICES by Larry Xavier
[2024-07-05] MEDS: AMLODIPINE 5 MG TAB PO SCH (09:00)
[2024-07-05] MEDS: ENOXAPARIN 40 MG/0.4 ML SQ SCH (09:00)
[2024-07-05] MEDS: FUROSEMIDE 20 MG/ 2ML VIAL IV SCH (09:00)
--- NOTE | 2024-07-05 09:01 | RAD REPORT ---
EXAMINATION: CT CHEST WITHOUT CONTRAST CLINICAL INDICATION: Female, 84 years old. dyspnea TECHNIQUE: Routine CT scan of the chest without intravenous contrast. One or more of the following do se reduction techniques were used: Automated exposure control, adjustment of the mA and/or kV according to patient size, and/or iterative reconstruction. Unless otherwise specified, incidental fi ndings do not require dedicated imaging follow-up. [id number]. COMPARISON: Chest x-ray 07/04/2024, CT 07/13/09 FINDINGS: LOWER NECK: Several thyroid nodules noted, the largest measuring 2.4 cm in the left lobe. The patient recently had a thyroid ultrasound on 01/12/2024. LUNGS AND AIRWAYS: Airways are clear. No evidence of airspace or interstitial process. . Mild depende nt scarring and/or atelectasis small cluster of benign-appearing nodules in the right upper lobe on image 22, series 201. These do not have a suspicious morphology. No suspicious pulmonary nodules iden tified. PLEURA: No pleural effusion. No pneumothorax. Hemidiaphragms are normally positioned. MEDIASTINUM AND LYMPH NODES: No mediastinal mass or fluid collection. Normal size mediastinal, hilar, and axillary lymph nodes. THORACIC AORTA: Ascending thoracic aortic aneurysm measuring 4.2 cm. PULMONARY ARTERIES: Normal caliber. HEART: Mild cardiomegaly. No coronary calcifications.No pericardial effusion. Mitral annular calcific indications. OSSEOUS STRUCTURES AND CHEST WALL: Several compression deformity is are present in the thoracic spine including at the T3, T8, and T12 levels. These are favored chronic. UPPER ABDOMEN: Cholecystomy. Subcentimeter right adrenal nodule with Hounsfield units consistent with an adenoma. Partially imaged right upper pole renal lesion which is probably a cyst. IMPRESSION: No acute findings within the lungs. Specifically, no pulmonary edema or evidence of pneumonia. Ascending thoracic aortic aneurysm measuring 4.2 cm. These are sometimes followed with annual chest C T. Remote appearing thoracic compression fractures.
[2024-07-05] MEDS ORDERED: ENOXAPARIN 40 MG/0.4 ML SQ ONE (09:21)
[2024-07-05] MEDS ORDERED: FUROSEMIDE 20 MG/ 2ML VIAL ONE (09:21)
[2024-07-05] MEDS ORDERED: AMLODIPINE 5 MG TAB ONE (09:21)
--- NOTE | 2024-07-05 10:37 | ECHO ---
HEIGHT: 5 ft 3 in WEIGHT: 145 lb 0 oz DATE OF STUDY: 07/05/[address]: Wolf Lozoya 2-DIMENSIONAL: YES M.MODE: YES DOPPLER: YES COLOR FLOW: YES TDS: PORTABLE: DEFINITY: BUBBLE STUDY: DIAGNOSIS: CONGESTIVE HEART FAILURE CARDIAC HISTORY: CATHERIZATION: YES SURGERY: NO PROSTHETIC VALVE: NO PACEMAKER: NO MEASUREMENTS (cm) DIASTOLIC (NORMALS) SYSTOLIC (NORMALS) IVSd 1.1 (0.6-1.2) LA Diam 4.6 (1.9-4.0) LVEF 65% LVIDd 3.9 (3.5-5.7) LVIDs 2.4 (2.0-3.5) %FS 38% LVPWd 1.1 (0.6-1.2) Ao Diam 2.9 (2.0-3.7) 2 DIMENSIONAL ASSESSMENT: RIGHT ATRIUM: NORMAL LEFT ATRIUM: MILDLY DILATED RIGHT VENTRICLE: NORMAL LEFT VENTRICLE: NORMAL TRICUSPID VALVE: MILD TRICUSPID REGURGITATION MITRAL VALVE: NORMAL PULMONIC VALVE: NORMAL AORTIC VALVE: MILD AORTIC REGURGITATION PERICARDIAL EFFUSION: NONE AORTIC ROOT: NORMAL LEFT VENTRICULAR WALL MOTION: NORMAL DOPPLER/COLOR FLOW: GRADE I DIASTOLIC DYSFUNCTION COMMENTS: 1. NORAML LEFT VENTRICULAR SYSTOLIC FUNCTION, EJECTION FRACTION 65%, NORMAL WALL MOTION 2. GRADE I DIASTOLIC DYSFUNCTION 3. NORMAL FILLING PRESSURE 4. MILD AORTIC REGURGITATION 5. MILD TRICUSPID REGURGITATION TECHNOLOGIST: JESS MICHEL
[2024-07-05] MEDS ORDERED: D10W 125 ML IV PRN (16:46)
[2024-07-05] MEDS ORDERED: GLUCAGON 1 MG/VIAL IM PRN (16:46)
[2024-07-05] MEDS: POTASSIUM CL SA 10 MEQ TAB PO ONE (17:26)
[2024-07-05] MEDS: ACETAMINOPHEN 500 MG TAB PO PRN (17:26)
[2024-07-05] MEDS ORDERED: METOPROLOL TAR 25 MG TAB PO SCH (21:00)
[2024-07-05] MEDS: METOPROLOL TAR 50 MG TAB PO SCH (21:32)
[2024-07-05 23:43] VITALS: O2SAT 95
--- NOTE | 2024-07-06 05:40 | HP ---
Date of Admission: 07/05/2024 Chief Complaint: Shortness of breath. History Of Present Illness: This is an 84-year-old very pleasant female patient who came into emergency room with about 2 weeks history of shortness of breath and some leg swelling in the lower legs. The patient uses CPAP at nighttime and feels like that she might wake up from sleep because of shortness of breath a few times and she is sitting in upright position at night as well. She denies any fever, chills, or any expectoration. No chest pain. She was exposed to COVID-19 about 5 days ago or so and her COVID-19 test at home was negative. She was asked to come to emergency room, and after she was evaluated last night, she was admitted to the hospital with congestive heart failure. When I saw her, she was in the emergency room this morning and her daughter was with her at bedside. She denies any chest pain or palpitation. Allergies: TO SULFA CAUSING RASH AND CODEINE CAUSING NAUSEA. Medications: Aspirin 81 mg daily, doxepin 25 mg at bedtime, famotidine 40 mg daily at bedtime, fenofibrate 160 mg daily, metoprolol tartrate 50 mg takes 1- 1/2 tablet 2 times a day, olmesartan 40 mg daily, tamsulosin 0.4 mg daily, and Mounjaro 5 mg subcutaneous injection once a week. Review of Systems: Respiratory: As mentioned above. Cardiovascular: As mentioned above. All other systems reviewed and negative. Past Medical History: Significant for thyroid nodule, type 2 diabetes mellitus, hypertension, mixed hyperlipidemia, thoracic aortic aneurysm, gastroesophageal reflux disease, diverticulosis, chronic kidney disease stage 3a, osteoporosis. Past Surgical History: Significant for cataract surgery, tonsillectomy, cholecystectomy, appendectomy, small bowel resection, and hysterectomy. Family History: Father , had prostate cancer. Mother , had colon cancer, congestive heart failure, and diabetes. Brother had atrial fibrillation. Sister had COPD, congestive heart failure, and atrial fibrillation. Social History: Negative for alcohol and smoking. Physical Examination: Vital Signs: Temperature 98.5, pulse 69, respiratory rate 20, blood pressure 168/85, oxygen saturation 95%. Height 5 feet 3 inches, weight 145 pounds. General: Awake, alert, oriented, not in distress. HEENT: Head atraumatic, normocephalic. Conjunctivae nonerythematous. Sclerae white. Mouth, no thrush or edema noted. Ears/Nose, no mass, lesion, discharge noted. Neck: Supple. No JVD, lymph nodes, bruit, thyromegaly noted. Lungs: Presence of rales noted in lower 1/3rd of both lung ross. Not using accessory muscles of respiration. Heart: Normal heart sounds, no murmur or gallop. Abdomen: Soft, bowel sounds normal. No guarding, rigidity, tenderness, mass, hepatosplenomegaly, distention, or bruit noted. Extremities: Bilateral trace edema in lower extremities. Skin: No rash, ulcer, cellulitis. Lymphatics: No lymph node enlargement in neck, supraclavicular, infraclavicular region. Neuro: No focal neurological deficit. Chest: Unremarkable. External Genitalia: Deferred. Rectal: Deferred. Laboratory Data: Last night, WBC 8.4, hemoglobin 13, platelets 264. Sodium 142, potassium 3.2, chloride 111, bicarb 25, BUN 13, creatinine 0.84, glucose 99. Liver function tests unremarkable. Troponin 9.2. ProBNP 1570. COVID-19 test negative. Chest x-ray shows bilateral basilar airspace opacities. Her labs today: WBC 6, hemoglobin 12.8, platelets 288. Sodium 141, potassium 3.2, chloride 108, bicarb 27, BUN 12, creatinine 0.81, glucose 118, magnesium 2. CAT scan of the chest was done today after I saw her shows no acute findings in the lungs, specifically no evidence of pulmonary edema or pneumonia, ascending thoracic aortic aneurysm 4.2 cm in size, and remote appearing thoracic compression fractures. Echocardiogram done today shows ejection fraction 65%, grade 1 diastolic dysfunction, mild aortic regurgitation, mild tricuspid regurgitation. Impression: 1. Congestive heart failure, chronic, diastolic with acute exacerbation. 2. Hypokalemia. 3. Type 2 diabetes mellitus. 4. Chronic kidney disease stage 3a. 5. Hypertension. 6. Mixed hyperlipidemia. 7. Thoracic aortic aneurysm, ascending aorta. 8. Gastroesophageal reflux disease. 9. Diverticulosis. 10. Osteoporosis with compression fracture of spine. Plan: We will go ahead and admit the patient to hospital for further evaluation and management of this problem. The patient will be started on IV Lasix, which she received in the emergency room. She also received a dose of antibiotic in the emergency room thinking about possibility of pneumonia, which we have ruled out now. Clinically, her symptoms are consistent with congestive heart failure problem and she has diastolic heart failure. We will manage with diuretic therapy. Replace electrolyte per protocol for hypokalemia and we will repeat blood work tomorrow morning. DVT prophylaxis will be given using Lovenox. For hypertension, we will continue her antihypertensive medications per order. For her hyperlipidemia, we will continue her medications per order, which is fenofibrate and no need for further intervention. For diabetes, I will go ahead and order sliding scale insulin. She takes Mounjaro at home on a weekly basis and no need for further intervention while in the hospital. Thoracic aortic aneurysm is a known diagnosis for her and she has been followed by her yard clerk for this and we will encourage her to continue to follow up with her yard clerk. I will see her tomorrow morning for followup. Total time spent is 80 minutes that includes review of outpatient office visit records, review of emergency room visit record, communication with emergency room physician, and performing today's evaluation and management. HITESH/JOCELIN Voice ID: [id number] BABS
[2024-07-06 06:25] LABS: Absolute Eosinophils 0.2 K/uL (0-0.5); Absolute Lymphocytes (CBC) 1.4 K/uL (0.7-4.9); Absolute Neutrophil 4.5 K/uL (1.8-8.0); Basophils % 0.5 % (0-1.3); Eosinophils % 2.8 % (0-4.4); Hematocrit 42.6 % (36.0-45.0); Hemoglobin 14.4 g/dL (12.0-15.0); Lymphocytes % 19.7 % (15.3-44.8); MCH 30.8 pg (27.0-35.0); MCHC 33.7 g/dL (32.0-36.0); MCV 91.2 fL (80-100); MPV 7.7 fL (7.6-11.3); Monocytes % 14.4 % (3.3-12.3); Neutrophils % 62.6 % (41.7-73.7); Nucleated Red Blood Cells % 0.1 % (0-0); Platelets 312 thou/uL (152-406); RBC Red Blood Cell Count 4.67 M/uL (3.86-4.86); Red Cell Distribution Width 14.3 % (12.1-15.2)
[2024-07-06 06:47] LABS: Albumin 4.1 g/dL (3.4-5.0); Albumin/Globulin Ratio 1.1 (1.1-1.8); Anion Gap 8.9 mEq/L (5.0-15.0); Bilirubin Total 0.4 mg/dL (0.2-1.0); Globulin 3.9 g/dL (2.3-3.5); Magnesium 2.1 mg/dL (1.6-2.4); Potassium 3.9 mEq/L (3.5-5.1)
[2024-07-06] MEDS ORDERED: Levofloxacin500mg IV 500 MG/100 ML BAG IV SCH (08:00)
[2024-07-06] MEDS ORDERED: FENOFIBRATE 160 MG TAB PO SCH (09:00)
[2024-07-06] MEDS ORDERED: ASPIRIN 81 MG CHEWABLE TABLET PO SCH (09:00)
[2024-07-06] MEDS ORDERED: VALSARTAN 160 MG TAB PO SCH (09:00)
[2024-07-06] MEDS ORDERED: OLMESARTAN PO SCH (09:00)
[2024-07-06] MEDS ORDERED: HYDROCHLOROTHIAZIDE PO SCH (09:00)
[2024-07-06] MEDS ORDERED: hydroCHLOROthiazide 25 MG TAB PO SCH (09:00)
[2024-07-06 09:07] VITALS: BP 179/86; TEMP 97.3
--- NOTE | 2024-07-07 00:43 | DS ---
Date of Discharge: 07/06/2024 Disposition: Discharged to go home. Physical Examination: HEENT: Unremarkable. Lungs: Clear to auscultation. No wheezing. No rales. Not in respiratory distress. Heart: Sounds normal. Abdomen: Soft. Bowel sounds normal. No guarding, rigidity, tenderness, distention. Extremities: No leg edema. Laboratory Data: Upon admission, white count 8.4, hemoglobin 13, platelets 264. Today, white count 7.2, hemoglobin 14.4, platelets 312. For chemistry today, sodium 139, potassium 3.9, chloride 108, b icarb 26, BUN 22, creatinine 0.99, glucose 143. Liver function tests unremarkable. Her last troponi n yesterday morning was 9.3, and upon admission troponin was 9.2. Chemistry upon admission, sodium 1 42, potassium 3.2, chloride 111, bicarb 25, BUN 13, creatinine 0.84, glucose 99. Liver function test s unremarkable. ProBNP 1570. Echocardiogram shows ejection fraction 65%, diastolic dysfunction, mil d aortic regurgitation, and tricuspid regurgitation. CAT scan of the chest was negative for any acut e findings. The patient was noted to have 4.2 cm aneurysm of ascending thoracic aorta. Chest x-ray had shown bilateral airspace opacities in lower lobes. Hospital Course: This is an 84-year-old pleasant female patient, who was admitted to the hospital af ter she came in with almost 2 weeks history of cough, shortness of breath, and some leg swelling. Pl ease see dictated H and P for more information. After the patient was evaluated in the emergency anthony m, she was admitted to the hospital and she was treated for the congestive heart failure. Her COVID- 19 test was negative. The patient received IV Lasix and potassium replacement and after all the nece ssary testing were done today when I saw her, she was feeling much better. Her shortness of breath p roblem had improved. Leg swelling has resolved and medically she was stable for discharge and ____ discharge has been reported, so the patient was discharged to go home in stable condition with f ezio discharge medications and instructions. Discharge Medications And Instructions: 1.Continue all prior home medication. 2.Start furosemide 40 mg, take 1 tablet by mouth daily. 3.Potassium chloride 20 mEq, take 1 tablet by mouth daily. 4.Follow up at my office next week on 07/12/2024 or 07/13/2024. Final Diagnoses: 1.Congestive heart failure, chronic, diastolic, with acute exacerbation. 2.Hypokalemia. 3.Type 2 diabetes mellitus. 4.Chronic kidney disease, stage IIIA. 5.Hypertension. 6.Mixed hyperlipidemia. 7.Thoracic aortic aneurysm, ascending aorta. 8.Gastroesophageal reflux disease. 9.Diverticulosis. 10.Osteoporosis with compression fracture of spine. Total time spent 40 minutes. HITESH/MODL Voice ID: [id number] Report ID: [id number]
== END 2024-07-06 09:51 | disposition home or self-care (01) | DRG 291 ==
LOC: ER 21:37 → ERHOLD 07-05 00:45 → 2ND 07-05 11:56 → OBSVTOIN 07-06 09:17
PROVIDERS: ADMIT Internal Medicine; ATTEND Internal Medicine
DX: I13.0 Hypertensive heart and chronic kidney disease with heart failure and stage 1 through stage 4 chronic kidney disease, or unspecified chronic kidney disease (principal); I50.33 Acute on chronic diastolic (congestive) heart failure; N18.31 Chronic kidney disease, stage 3a; E11.22 Type 2 diabetes mellitus with diabetic chronic kidney disease; E78.2 Mixed hyperlipidemia; E87.6 Hypokalemia; K21.9 Gastro-esophageal reflux disease without esophagitis; I71.21 Aneurysm of the ascending aorta, without rupture; K57.90 Diverticulosis of intestine, part unspecified, without perforation or abscess without bleeding; M80.88XD Other osteoporosis with current pathological fracture, vertebra(e), subsequent encounter for fracture with routine healing; Z88.5 Allergy status to narcotic agent; Z88.2 Allergy status to sulfonamides; Z79.82 Long term (current) use of aspirin; Z11.52 Encounter for screening for COVID-19; Z79.84 Long term (current) use of oral hypoglycemic drugs; Z90.49 Acquired absence of other specified parts of digestive tract; Z99.89 Dependence on other enabling machines and devices; Z79.899 Other long term (current) drug therapy; Z90.710 Acquired absence of both cervix and uterus
CPT/HCPCS: 36415; 71045; 71250; 80048; 80053; 80076; 82947; 83735; 83880; 84484; 85025; 87811; 93005; 93306; 99285; G0378; J1650; J1940